=== PATIENT | male | born 1960 | race Caucasian/White ===

== ENCOUNTER 2016-11-20 19:40 | Emergency (ER) | payer SELFPAY ==
[2016-11-20] MEDS ORDERED: NORMAL SALINE 1000 ML 2,000 ML IV PRN (20:02)
--- NOTE | 2016-11-20 20:18 | ER Document Report ---
ED General - General Chief Complaint: Low Blood Pressure Stated Complaint: ALTERED MENTAL STATUS Time seen by provider: 20:16 Mode of Arrival: Stretcher Information source: Patient TRAVEL OUTSIDE OF THE [place] IN LAST 30 DAYS: No - HPI Patient complains to provider of: fever, generalized weakness Onset: Other - 3-4 days Onset/Duration: Persistent Quality of pain: Achy Severity: Mild Pain Level: 2 Associated symptoms: Body/muscle aches, Chills, Nonproductive cough, Fever, Headache, Nausea, Weakness Exacerbated by: Denies Relieved by: Denies Similar symptoms previously: No Recently seen / treated by doctor: No Notes: Patient is a 56-year-old male with no past medical history who presents to the emergency room via EMS for fever 102, body aches, nonproductive cough, vomiting , epigastric abdominal pain, headache, symptoms of been going on for 3-4 days, he denies any sick contacts - Related Data Allergies/Adverse Reactions: No Known Allergies Allergy (Verified 02/05/16 15:11) Past Medical History - General Information source: Patient - Social History Smoking Status: Unknown if Ever Smoked Family History: Arthritis, DM, Hypertension, Malignancy Musculoskeltal Medical History: Reports Hx Musculoskeletal Trauma - Finger Traumatic Medical History: Reports: Hx Fractures - Finger - Immunizations Hx Diphtheria, Pertussis, Tetanus Vaccination: Yes - 2016 Review of Systems - Review of Systems Constitutional: Fever EENT: See HPI Cardiovascular: No symptoms reported Respiratory: See HPI Gastrointestinal: See HPI Genitourinary: No symptoms reported Male Genitourinary: No symptoms reported Musculoskeletal: See HPI Skin: No symptoms reported Hematologic/Lymphatic: No symptoms reported Neurological/Psychological: See HPI -: Yes All other systems reviewed and negative Physical Exam - Vital signs Vitals: Resp Pulse Ox 10 L 100 11/20/16 19:54 11/20/16 19:54 Interpretation: Normal - General General appearance: Alert In distress: None - HEENT Head: Normocephalic, Atraumatic Eyes: Normal Conjunctiva: Normal Extraocular movements intact: Yes Eyelashes: Normal Pupils: PERRL Ears: Normal External canal: Normal Tympanic membrane: Normal Sinus: Normal Nasal: Clear rhinorrhea Mouth/Lips: Normal Pharynx: Normal Neck: Normal. No: Meningismus - Respiratory Respiratory status: No respiratory distress Chest status: Nontender Breath sounds: Normal Chest palpation: Normal - Cardiovascular Rhythm: Regular Heart sounds: Normal auscultation Murmur: No - Abdominal Inspection: Normal Distension: No distension Bowel sounds: Normal Tenderness: Tender - Epigastric Organomegaly: No organomegaly - Back Back: Normal, Nontender - Extremities General upper extremity: Normal inspection, Nontender, Normal color, Normal ROM , Normal temperature General lower extremity: Normal inspection, Nontender, Normal color, Normal ROM , Normal temperature, Normal weight bearing. No: Birgit's sign - Neurological Neuro grossly intact: Yes Cognition: Normal Orientation: AAOx4 Wolcott Coma Scale Eye Opening: Spontaneous Wolcott Coma Scale Verbal: Oriented Wolcott Coma Scale Motor: Obeys Commands Wolcott Coma Scale Total: 15 Speech: Normal Motor strength normal: LUE, RUE, LLE, RLE Sensory: Normal - Psychological Associated symptoms: Normal affect, Normal mood - Skin Skin Temperature: Warm Skin Moisture: Dry Skin Color: Normal Course - Re-evaluation Re-evalutation: 11/20/16 23:15 Patient resting comfortably, reports feeling significant relief of symptoms, lab findings were discussed with him at bedside including positive influenza B testing, patient was advised for supportive care, Tylenol or Motrin as needed for fever or body aches, follow up with a primary care provider, return if symptoms worsen, patient acknowledges understanding and agreement with this plan - Vital Signs Vital signs: Temp Pulse Resp BP Pulse Ox 98.5 F 16 136/89 H 97 11/20/16 23:54 11/20/16 23:49 11/20/16 23:49 11/20/16 23:49 - Laboratory Result Diagrams: 11/20/16 20:30 11/20/16 20:30 Laboratory results interpreted by me: 11/20/16 11/20/16 20:30 20:30 Plt Count 125 L Calcium 8.1 L AST 16 L ALT 20 L Creatine Kinase 38 L Total Protein 5.9 L Albumin 3.2 L - Diagnostic Test Radiology reviewed: Image reviewed, Reports reviewed Discharge - Discharge Clinical Impression: Influenza B Condition: Stable Disposition: HOME, SELF-CARE Instructions: Acetaminophen, Influenza ([facility]) [id number], Ibuprofen (General) ( [facility]), Influenza ([facility]) Additional Instructions: Drink plenty of fluids. Tylenol or Motrin as needed for fever or body aches. Follow up with your primary care provider in 2-3 days as needed. Return to the emergency room immediately if symptoms worsen or any additional concerns.
[2016-11-20 20:48] LABS: ABSOLUTE LYMPHOCYTES (AUTO) 0.6 10^3/uL (0.5-4.7); ABSOLUTE MONOCYTES (AUTO) 0.6 10^3/uL (0.1-1.4); ABSOLUTE NEUT (AUTO) 3.6 10^3/uL (1.7-8.2); BASOPHILS % (AUTO) 0.4 % (0-2); EOSINOPHILS % (AUTO) 0.4 % (0-6); HEMATOCRIT 42.6 % (37.9-51.0); HEMOGLOBIN 14.6 g/dL (13.5-17.0); HGB HCT DIFFERENCE 1.2; LYMPHOCYTES % (AUTO) 13.3 % (13-45); MEAN CORPUSCULAR HEMOGLOBIN 30.7 pg (27.0-33.4); MEAN CORPUSCULAR HGB CONC 34.4 g/dL (32.0-36.0); MEAN CORPUSCULAR VOLUME 89 fl (80-97); RED BLOOD COUNT 4.77 10^6/uL (4.35-5.55); RED CELL DISTRIBUTION WIDTH 12.6 % (11.5-14.0); SEGMENTED NEUTROPHILS % (AUTO) 73.9 % (42-78); WHITE BLOOD COUNT 4.9 10^3/uL (4.0-10.5)
[2016-11-20 21:08] LABS: ALANINE AMINOTRANSFERASE 20 U/L (21-72); ALBUMIN 3.2 g/dL (3.5-5.0); ALCOHOL < 10 mg/dL (NONE DETECTED); ALKALINE PHOSPHATASE 72 U/L (38-126); ANION GAP 10 (5-19); ASPARTATE AMINO TRANSFERASE 16 U/L (17-59); BILIRUBIN,TOTAL 0.5 mg/dL (0.2-1.3); BLOOD UREA NITROGEN 17 mg/dL (7-20); CALCIUM 8.1 mg/dL (8.4-10.2); CARBON DIOXIDE 25 mmol/L (22-30); CHLORIDE 105 mmol/L (98-107); CREATINE KINASE 38 U/L (55-170); CREATININE RESULT 1.15 mg/dL (0.52-1.25); GLUCOSE 92 mg/dL (75-110); LIPASE 67.4 U/L (23-300); POTASSIUM 3.6 mmol/L (3.6-5.0); SODIUM 139.9 mmol/L (137-145); TOTAL PROTEIN 5.9 g/dL (6.3-8.2)
[2016-11-20 21:19] LABS: CREATINE KINASE MB < 0.22 ng/mL (<4.55); TROPONIN I < 0.012 ng/mL
[2016-11-20 23:54] VITALS: BP 136/89
--- NOTE | 2016-11-21 12:31 | EKG REPORT ---
SEVERITY:- ABNORMAL ECG - SINUS RHYTHM INCOMPLETE RIGHT BUNDLE BRANCH BLOCK : Confirmed by: Janice Bhatia 21-Nov-2016 12:30:56
== END 2016-11-20 23:50 | disposition home or self-care (01) ==
LOC: ER 19:40
DX: J11.1 Influenza due to unidentified influenza virus with other respiratory manifestations (principal); R50.9 Fever, unspecified; R53.1 Weakness; M79.1 Myalgia; R05 Cough; R51 Headache; R11.2 Nausea with vomiting, unspecified; R10.13 Epigastric pain; J34.89 Other specified disorders of nose and nasal sinuses
CPT/HCPCS: 93005; 99285; 96360; 36415; 87040; 82553; 80307; 82550; 83690; 85025; 80053; 84484; 83605; 87804; 71020; 93010; J7030

== ENCOUNTER 2017-06-20 15:51 | Inpatient (IN) | payer SELFPAY ==
[2017-06-20] MEDS ORDERED: LEVETIRACETAM 1000 MG/NACL-ISO 1,000 MG/100 ML RTUPB IV ONE (16:08)
--- NOTE | 2017-06-20 16:25 | ER Document Report ---
ED Seizure - General Mode of Arrival: Medic Information source: Patient, Emergency Med Personnel - [facility] Patient complains to provider of: History of seizures <ILA MILLER - Last Filed: 06/20/17 20:39> <AMBROSE OATES - Last Filed: 06/21/17 00:09> - General Chief Complaint: Seizure Stated Complaint: PROBABLE SEIZURE Notes: Patient is a 57 year old male who presents to the ED via EMS after having a seizure while at work. 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 Patient is reported to have an episode of nausea and vomiting prior to the seizure. Patient had 3 witnessed seizures by EMS. He was given Valium and Zofran en route. Patient states he had a headache yesterday. He has a hx of seizures but has not taken any medication for 2 years. (ILA MILLER) After sister arrives and the patient is more awake both patient and sister deny that he ever had any history of seizures or epilepsy, he now denies nausea and vomiting yesterday, states that for the past several days he has been feeling intermittent tightness in his chest and flushing, states that he has been taking Benadryl 6-7 pills nightly to help him sleep. States that he feels like something is wrong but he does not know what. Denies any chest pain. Denies any history of seizures. Admits marijuana, denies any other recreational drug use currently. When questioned regarding the cocaine in his urine drug screen states that the last time he used was several years ago. (AMBROSE OATES) - Related Data Allergies/Adverse Reactions: No Known Allergies Allergy (Verified 06/20/17 16:12) Past Medical History - General Information source: Patient - Social History Smoking Status: Unknown if Ever Smoked Chew tobacco use (# tins/day): No Frequency of alcohol use: None Drug Abuse: Marijuana Family History: Arthritis, DM, Hypertension, Malignancy Patient has suicidal ideation: No Patient has homicidal ideation: No Neurological Medical History: Reports: Hx Seizures Renal/ Medical History: Denies: Hx Peritoneal Dialysis Musculoskeltal Medical History: Reports Hx Musculoskeletal Trauma - Finger Traumatic Medical History: Reports: Hx Fractures - Finger Surgical Hx: Negative - Immunizations Hx Diphtheria, Pertussis, Tetanus Vaccination: Yes - 2015 <ILA MILLER - Last Filed: 06/20/17 20:39> Review of Systems - Review of Systems Constitutional: No symptoms reported EENT: No symptoms reported Cardiovascular: No symptoms reported Respiratory: No symptoms reported Gastrointestinal: See HPI, Nausea, Vomiting Genitourinary: No symptoms reported Male Genitourinary: No symptoms reported Musculoskeletal: No symptoms reported Skin: No symptoms reported Hematologic/Lymphatic: No symptoms reported Neurological/Psychological: See HPI, Seizure, Headaches <ILA MILLER - Last Filed: 06/20/17 20:39> Physical Exam <ILA MILLER - Last Filed: 06/20/17 20:39> <STEVIEYANCYAMBROSE - Last Filed: 06/21/17 00:09> - Vital signs Vitals: Resp Pulse Ox 18 95 06/20/17 16:03 06/20/17 16:03 - Notes Notes: GENERAL: Alert, interacts well. No acute distress. No trauma visible. HEAD: Normocephalic, atraumatic. EYES: Pupils equal, round, and reactive to light. Extraocular movements intact. ENT: Oral mucosa moist, tongue midline. NECK: Full range of motion. Supple. Trachea midline. LUNGS: Clear to auscultation bilaterally, no wheezes, rales, or rhonchi. No respiratory distress. HEART: Regular rate and rhythm. No murmurs, gallops, or rubs. ABDOMEN: Soft, non-tender. Non-distended. Bowel sounds present in all 4 quadrants. EXTREMITIES: Moves all 4 extremities spontaneously. No edema, radial and dorsalis pedis pulses 2/4 bilaterally. No cyanosis. NEUROLOGICAL: Alert and oriented to person and place, he thinks it is 2002 but with prompting could tell me Luis is the president. Normal speech. normal finger to nose test. No ataxia. Some repetitive questions. Biceps and patellar DTRs 2+ bilaterally. PSYCH: Normal affect, normal mood. SKIN: Warm, dry, normal turgor. No rashes or lesions noted. (ILA MILLER) Course - Laboratory Result Diagrams: 06/20/17 15:57 06/20/17 15:57 - Consults Dr. Morrison Time consulted: 20:25 Consulted provider: will see as inpatient <ILA MILLER - Last Filed: 06/20/17 20:39> - Laboratory Result Diagrams: 06/20/17 15:57 06/20/17 15:57 <AMBROSE OATES - Last Filed: 06/21/17 00:09> - Re-evaluation Re-evalutation: 06/20/17 20:45 CBC unremarkable, CMP shows acute renal failure with a BUN of 28 and a creatinine of 1.56 consistent with dehydration, CO2 is also low consistent with dehydration and ketones in the urine also support dehydration, patient hydrated with a liter of normal saline, given 1 g of Keppra IV, patient did have several apneic episodes that lasted 5-10 seconds, he was never cyanotic nor was he hypoxic, patient was easily awakened with verbal or physical stimulation, painful stimuli was not required. Suspect this is the side effect of a combination of seizures, Keppra and Valium all at the same time. Patient has no focal neurologic deficits. CT scan of the head is negative for any bleeding. Neurologic exam is nonfocal. Given the new onset nature of the seizures and the fact that he had 3 in one day so this is complex rather than simple seizures first episode I do feel the patient needs to be admitted for further seizure workup including MRI and EEG. Discussed with hospitalist Dr. Morrison who agrees to place the patient on his service in observation status on the telemetry care unit. (AMBROSE OATES) - Vital Signs Vital signs: Temp Pulse Resp BP Pulse Ox 98.3 F 13 127/86 H 99 06/20/17 23:04 06/20/17 22:02 06/20/17 22:02 06/20/17 18:03 - Laboratory Laboratory results interpreted by me: 06/20/17 06/20/17 15:57 17:45 Carbon Dioxide 21 L BUN 28 H Creatinine 1.56 H Est GFR ( Amer) 56 L Est GFR (Non-Af Amer) 46 L Direct Bilirubin 0.5 H ALT 20 L Urine Protein 30 H Urine Ketones 20 H - Consults Dr. Morrison Reason for consultation: 06/20/17 20:35 Discussed patient. Patient is accepted for admission to telemetry observation. (ILA MILLER) Discharge <ILA MILLER - Last Filed: 06/20/17 20:39> - Discharge Admitting Provider: Abdirahmanist - fausto Unit Admitted: Telemetry <AMBROSE OATES - Last Filed: 06/21/17 00:09> - Discharge Clinical Impression: New onset seizure, Marijuana abuse Condition: Fair Disposition: ADMITTED OBSERVATION Scribe Attestation: 06/21/17 00:08 I personally performed the services described in the documentation, reviewed and edited the documentation which was dictated to the scribe in my presence, and it accurately records my words and actions. (AMBROSE OATES) Scribe Documentation - Scribe Written by Xiang:: xiang Pillai, 06/20/2017, 1736 acting as scribe for :: Emmett <ILA MILLER - Last Filed: 06/20/17 20:39>
--- NOTE | 2017-06-20 16:51 | RADIOLOGY REPORT (SQ) ---
EXAM DESCRIPTION: CT HEAD WITHOUT COMPLETED DATE/TIME: 06/20/2017 4:42 pm REASON FOR STUDY: seizure COMPARISON: 05/22/2008 TECHNIQUE: Axial images acquired through the brain without intravenous contrast. Images reviewed wi th bone, brain and subdural windows. Images stored on PACS. All CT scanners at this facility use dose modulation, iterative reconstruction, and/or weight based d osing when appropriate to reduce radiation dose to as low as reasonably achievable (ALARA). [facility]: Dose Right [facility]: CareDose [facility]: Dose Right [facility]: Teradose 4D [facility]: Smart Technologies RADIATION DOSE: Up-to-date CT equipment and radiation dose reduction techniques were employed. CTDIv ol: 64.6 mGy. DLP: 1163 mGy-cm. mGy. LIMITATIONS: None. FINDINGS: VENTRICLES: Normal size and contour. CEREBRUM: No masses. No hemorrhage. No midline shift. No evidence for acute infarction. Normal gra y/white matter differentiation. No areas of low density in the white matter. CEREBELLUM: No masses. No hemorrhage. No alteration of density. No evidence for acute infarction. EXTRAAXIAL SPACES: No fluid collections. No masses. ORBITS AND GLOBE: No intra- or extraconal masses. Normal contour of globe without masses. CALVARIUM: No fracture. PARANASAL SINUSES: No fluid or mucosal thickening. SOFT TISSUES: No mass or hematoma. OTHER: No other significant finding. IMPRESSION: NORMAL BRAIN CT WITHOUT CONTRAST. COMMENT: Quality ID # [id number]: Final reports with documentation of one or more dose reduction techniques (e.g., Automated exposure control, adjustment of the mA and/or kV according to patient size, use of iterative reconstruction technique) TECHNICAL DOCUMENTATION: JOB ID: [id number]- All Rights Reserved
[2017-06-20 16:59] LABS: ABSOLUTE LYMPHOCYTES (AUTO) 1.3 10^3/uL (0.5-4.7); ABSOLUTE MONOCYTES (AUTO) 0.7 10^3/uL (0.1-1.4); ABSOLUTE NEUT (AUTO) 5.8 10^3/uL (1.7-8.2); BASOPHILS % (AUTO) 0.4 % (0-2); EOSINOPHILS % (AUTO) 0.6 % (0-6); HEMATOCRIT 44.8 % (37.9-51.0); HEMOGLOBIN 15.7 g/dL (13.5-17.0); HGB HCT DIFFERENCE 2.3; MEAN CORPUSCULAR HEMOGLOBIN 32.2 pg (27.0-33.4); MEAN CORPUSCULAR VOLUME 92 fl (80-97); MONOCYTES % (AUTO) 9.3 % (3-13); RED BLOOD COUNT 4.87 10^6/uL (4.35-5.55); RED CELL DISTRIBUTION WIDTH 13.4 % (11.5-14.0); SEGMENTED NEUTROPHILS % (AUTO) 73.7 % (42-78); WHITE BLOOD COUNT 7.9 10^3/uL (4.0-10.5)
[2017-06-20 17:01] LABS: PROTHROMBIN TIME 13.3 SEC (11.4-15.4)
[2017-06-20 17:09] LABS: ALANINE AMINOTRANSFERASE 20 U/L (21-72); ALBUMIN 4.6 g/dL (3.5-5.0); ALKALINE PHOSPHATASE 92 U/L (38-126); ANION GAP 15 (5-19); ASPARTATE AMINO TRANSFERASE 27 U/L (17-59); BILIRUBIN,DIRECT 0.5 mg/dL (0.0-0.4); BILIRUBIN,TOTAL 1.3 mg/dL (0.2-1.3); BLOOD UREA NITROGEN 28 mg/dL (7-20); CALCIUM 10.1 mg/dL (8.4-10.2); CARBON DIOXIDE 21 mmol/L (22-30); CHLORIDE 105 mmol/L (98-107); CREATININE RESULT 1.56 mg/dL (0.52-1.25); GLUCOSE 110 mg/dL (75-110); MAGNESIUM 1.7 mg/dL (1.6-2.3); POTASSIUM 3.6 mmol/L (3.6-5.0); SODIUM 141.1 mmol/L (137-145); TOTAL PROTEIN 7.5 g/dL (6.3-8.2)
[2017-06-20 17:13] LABS: ALCOHOL < 10 mg/dL (NONE DETECTED)
[2017-06-20] MEDS ORDERED: NORMAL SALINE 1000 ML 1,000 ML IV ONE ×2 (17:40→20:46)
[2017-06-20 18:04] LABS: APPEARANCE,URINE SLIGHTLY-CLOUDY; BILIRUBIN,URINE NEGATIVE (NEGATIVE); GLUCOSE, URINE NEGATIVE (NEGATIVE); KETONES,URINE 20 mg/dL (NEGATIVE); LEUKOCYTE ESTERASE,URINE NEGATIVE (NEGATIVE); NITRITE,URINE NEGATIVE (NEGATIVE); PROTEIN,URINE 30 mg/dL (NEGATIVE); URINE SPECIFIC GRAVITY 1.028; UROBILINOGEN,URINE NEGATIVE mg/dL (<2.0)
[2017-06-20 19:31] LABS: URINE BARBITURATES SCREEN NEGATIVE; URINE METHADONE SCREEN NEGATIVE; URINE OPIATES LOW NEGATIVE; URINE PHENCYCLIDINE SCREEN NEGATIVE
[2017-06-20] MEDS ORDERED: ONDANSETRON HCL INJ/PF 4 MG/2 ML SDV IV PRN (20:43)
[2017-06-20] MEDS ORDERED: IPRATROPIUM/ALBUTEROL 0.5-2.5 MG/3 ML AMPUL NEB PRN (20:43)
--- NOTE | 2017-06-20 22:01 | EKG REPORT ---
SEVERITY:- ABNORMAL ECG - SINUS RHYTHM INCOMPLETE RIGHT BUNDLE BRANCH BLOCK : Confirmed by: Janice Bhatia 20-Jun-2017 22:00:44
[2017-06-21] MEDS: HEPARIN SOD (PORCINE) 5,000 UNIT/ML 1 ML SYRINGE SUBCUT SCH ×4 (00:18→21:00)
[2017-06-21] MEDS: ACETAMINOPHEN 325 MG TABLET PO PRN ×3 (03:29→23:42)
[2017-06-21] MEDS ORDERED: ACETAMINOPHEN 325 MG TABLET ONE (03:29)
[2017-06-21] MEDS: TEMAZEPAM 7.5 MG CAPSULE PO SCH (03:30)
[2017-06-21 04:50] LABS: ABSOLUTE EOSINOPHILS # (AUTO) 0.1 10^3/uL (0.0-0.6); ABSOLUTE MONOCYTES (AUTO) 0.7 10^3/uL (0.1-1.4); BASOPHILS % (AUTO) 0.7 % (0-2); EOSINOPHILS % (AUTO) 2.3 % (0-6); HEMATOCRIT 41.2 % (37.9-51.0); HEMOGLOBIN 14.4 g/dL (13.5-17.0); LYMPHOCYTES % (AUTO) 34.5 % (13-45); MEAN CORPUSCULAR VOLUME 91 fl (80-97); MONOCYTES % (AUTO) 11.9 % (3-13); RED BLOOD COUNT 4.51 10^6/uL (4.35-5.55); RED CELL DISTRIBUTION WIDTH 13.1 % (11.5-14.0); SEGMENTED NEUTROPHILS % (AUTO) 50.6 % (42-78); WHITE BLOOD COUNT 5.9 10^3/uL (4.0-10.5)
[2017-06-21 05:09] LABS: ANION GAP 9 (5-19); BLOOD UREA NITROGEN 23 mg/dL (7-20); CALCIUM 9.4 mg/dL (8.4-10.2); CARBON DIOXIDE 25 mmol/L (22-30); CHLORIDE 108 mmol/L (98-107); CREATININE RESULT 1.13 mg/dL (0.52-1.25); GLUCOSE 91 mg/dL (75-110); POTASSIUM 4.1 mmol/L (3.6-5.0); SODIUM 141.7 mmol/L (137-145)
--- NOTE | 2017-06-21 05:50 | PDOC H&P ---
History of Present Illness Admission Date/PCP: 06/20/17 20:43 Patient complains of: Seizure History of Present Illness: DARI GRIFFITHS JR is a 57 year old male With a past medical history of alcohol dependence and polysubstance abuse who was in his usual state of health until approximately 30 minutes prior to presentation. Having vomiting and witnessed seizures while at work EMS administered 5 mg Valium and he was brought to the emergency room for evaluation. He had 3 additional seizures without injury or incontinence and was given 1 g of Keppra and has a brief postictal period. Patient's workup and labs are unremarkable with exception to drug screen positive for cocaine, marijuana and benzodiazepine. Patient accompanied by his sister and adamantly denies recent cocaine but notably giving at least 3 different dates of last cocaine use. He is referred to the hospitalist for observation. Past Medical History Cardiac Medical History: Reports: None Pulmonary Medical History: Reports: None EENT Medical History: Reports: None Neurological Medical History: Reports: Seizures Endocrine Medical History: Reports: None Renal/ Medical History: Reports: None Malignancy Medical History: Reports: None GI Medical History: Reports: None Musculoskeltal Medical History: Reports: None Skin Medical History: Reports: None Psychiatric Medical History: Reports: Alcohol Dependency, Substance Abuse Denies: Depression Hematology: Reports: None Infectious Medical History: Reports: None Social History Information Source: Patient Lives with: Family Smoking Status: Never Smoker Frequency of Alcohol Use: Occasional Hx Recreational Drug Use: Yes Drugs: Cocaine, Marijuana - Advance Directive Resuscitation Status: Full Code Family History Family History: Arthritis, DM, Hypertension, Malignancy Parental Family History Reviewed: Yes Children Family History Reviewed: Yes Sibling(s) Family History Reviewed.: Yes Medication/Allergy Allergies/Adverse Reactions: No Known Allergies Allergy (Verified 06/20/17 16:12) Review of Systems Constitutional: ABSENT: chills, fever(s), headache(s), weight gain, weight loss Eyes: ABSENT: visual disturbances Ears: ABSENT: hearing changes Cardiovascular: ABSENT: chest pain, dyspnea on exertion, edema, orthropnea, palpitations Respiratory: ABSENT: cough, hemoptysis Gastrointestinal: ABSENT: abdominal pain, constipation, diarrhea, hematemesis, hematochezia, nausea, vomiting Genitourinary: ABSENT: dysuria, hematuria Musculoskeletal: ABSENT: joint swelling Integumentary: ABSENT: rash, wounds Neurological: ABSENT: abnormal gait, abnormal speech, confusion, dizziness, focal weakness, syncope Psychiatric: ABSENT: anxiety, depression, homidical ideation, suicidal ideation Endocrine: ABSENT: cold intolerance, heat intolerance, polydipsia, polyuria Hematologic/Lymphatic: ABSENT: easy bleeding, easy bruising Physical Exam Vital Signs: Temp Pulse Resp BP Pulse Ox 97.7 F 54 L 18 120/77 97 06/21/17 03:14 06/21/17 03:14 06/21/17 03:14 06/21/17 03:14 06/21/17 03:14 Intake & Output 06/19/17 06/20/17 06/21/17 11:59 11:59 11:59 Intake Total 0 Balance 0 Weight 88.1 kg General appearance: PRESENT: no acute distress, well-developed, well-nourished Head exam: PRESENT: atraumatic, normocephalic Eye exam: PRESENT: conjunctiva pink, EOMI, PERRLA. ABSENT: scleral icterus Ear exam: PRESENT: normal external ear exam Mouth exam: PRESENT: moist, tongue midline Neck exam: ABSENT: carotid bruit, JVD, lymphadenopathy, thyromegaly Respiratory exam: PRESENT: clear to auscultation gabriella. ABSENT: rales, rhonchi, wheezes Cardiovascular exam: PRESENT: RRR. ABSENT: diastolic murmur, rubs, systolic murmur Pulses: PRESENT: normal dorsalis pedis pul Vascular exam: PRESENT: normal capillary refill GI/Abdominal exam: PRESENT: normal bowel sounds, soft. ABSENT: distended, guarding, mass, organolmegaly, rebound, tenderness Rectal exam: PRESENT: deferred Extremities exam: PRESENT: full ROM. ABSENT: calf tenderness, clubbing, pedal edema Neurological exam: PRESENT: alert, awake, oriented to person, oriented to place , oriented to time, oriented to situation, CN II-XII grossly intact. ABSENT: motor sensory deficit Psychiatric exam: PRESENT: appropriate affect, normal mood. ABSENT: homicidal ideation, suicidal ideation Skin exam: PRESENT: dry, intact, warm. ABSENT: cyanosis, rash Results Laboratory Results: 06/21/17 04:28 06/21/17 04:28 06/21/17 06/21/17 04:28 04:28 WBC 5.9 RBC 4.51 Hgb 14.4 Hct 41.2 MCV 91 MCH 32.0 MCHC 35.0 RDW 13.1 Plt Count 178 Seg Neutrophils % 50.6 Lymphocytes % 34.5 Monocytes % 11.9 Eosinophils % 2.3 Basophils % 0.7 Absolute Neutrophils 3.0 Absolute Lymphocytes 2.0 Absolute Monocytes 0.7 Absolute Eosinophils 0.1 Absolute Basophils 0.0 Sodium 141.7 Potassium 4.1 Chloride 108 H Carbon Dioxide 25 Anion Gap 9 BUN 23 H Creatinine 1.13 Est GFR ( Amer) > 60 Est GFR (Non-Af Amer) > 60 Glucose 91 Calcium 9.4 Impressions: Head CT 06/20/17 00:00 IMPRESSION: NORMAL BRAIN CT WITHOUT CONTRAST. Assessment & Plan - Diagnosis (1) New onset seizure Is this a current diagnosis for this admission?: Yes Plan: Likely secondary to cocaine use given history and biochemical evidence. Education, continue Keppra and supportive measures. (2) Polysubstance abuse Is this a current diagnosis for this admission?: Yes Plan: Anticipate withdrawal, education and evaluate for rehab referral - Time Time Spent: 50 to 70 Minutes - Inpatient Certification Medical Necessity: Need Close Monitoring Due to Risk of Patient Decompensation
--- NOTE | 2017-06-21 09:58 | PROGRESS NOTE E ---
Progress Note NAME: DARI GRIFFITHS : 1960 AGE: 57Y DATE: 06/21/2017 ROOM: 319 SUBJECTIVE: The patient is a 57-year-old male, who has past medical history of cocaine abuse in the past, alcohol dependence and polysubstance abuse. He was in his usual state of health until last night, when he was having vomiting and seizure, and was brought to the emergency room. He had a urine drug screen that was remarkable for positive to cocaine, marijuana and benzodiazepine. The patient received 1 gram of Keppra IV in the ER and temazepam. He denied using cocaine. According to him, he used cocaine last time 2 years ago. The patient said he is working and he has difficulty sleeping. He uses Benadryl every day around 6 tablets to help sleep. OBJECTIVE: GENERAL: Right now, he is awake, alert, oriented and not in distress. VITAL SIGNS: Temperature 98.3, heart rate 53, blood pressure 94/59, respirations 18, oxygen saturation 99%. HEAD: Normocephalic, atraumatic. Pupils are equal, round, reactive to light and accommodation bilaterally. Extraocular movements intact. EARS: Tympanic membranes intact bilaterally. No discharge from the ears. NOSE: No discharge from the nose. NECK: Supple. No JVD. No thyromegaly. No lymphadenopathy. CARDIOVASCULAR: Normal S1, S2. Regular rate and rhythm. No murmur. No gallop. RESPIRATORY: Clear. ABDOMEN: Soft, nontender. MUSCULOSKELETAL: No edema. NEUROLOGICAL: Awake, alert. SKIN: No rash. LABORATORY DATA: White count 5.9, hemoglobin 14.4, sodium 141, potassium 4.1, chloride 108. Urine drug screen is positive for benzodiazepine, cocaine, marijuana. ASSESSMENT: 1. SEIZURE, NEW ONSET. Negative CT scan, positive drug screen. 2. POLYSUBSTANCE ABUSE. The patient denied using cocaine. He stated the last time he used cocaine was 2 years ago. 3. ALCOHOL USE. He also denies alcohol use. PLAN: 1. His seizures could be due to high dose of Benadryl. Possible also alcohol withdrawal, but he does not have any confusion or shaking or tremor. He had a negative CT scan. We will order MRI of the brain and EEG. We will consult Neurology as outpatient or on Thursday. I will start him on Keppra 500 mg twice a day and refer him to Neurology to follow as outpatient after we obtained MRI and EEG. 2. Discharge tomorrow morning. DICTATING PHYSICIAN: JENNIFER GONZALES M.D. [id number] PHY#: [id number] ID: [id number] JOB#: [id number] ACCT: [id number] cc: > MTDD
[2017-06-21] MEDS: IBUPROFEN 400 MG TABLET PO PRN (10:15)
[2017-06-21] MEDS: LEVETIRACETAM 500 MG TABLET PO SCH ×2 (10:16→21:00)
--- NOTE | 2017-06-21 12:01 | RADIOLOGY REPORT (SQ) ---
EXAM DESCRIPTION: MRI HEAD COMBO COMPLETED DATE/TIME: 06/21/2017 11:31 am REASON FOR STUDY: Seizure COMPARISON: CT dated 06/20/2017. TECHNIQUE: Multiplanar imaging includes noncontrasted T1, T2, FLAIR, diffusion with ADC map and post gadolinium contrast T1 sequences. Images stored on PACS. CONTRAST TYPE AND DOSE: 15 mL Multihance. RENAL FUNCTION: GFR > 60. LIMITATIONS: None. FINDINGS: ANATOMY: No anomalies. Normal vascular flow voids. Pituitary fossa normal. CSF SPACES: Normal in size and contour. No hemorrhage. CEREBRUM: Sulci and gyri normal in size and contour. Normal white matter signal on FLAIR imaging. No evidence of hemorrhage, mass, or extraaxial fluid collection. No abnormal enhancement post contrast. POSTERIOR FOSSA: No signal alteration. No hemorrhage. No edema, masses, or mass effect. Internal jared tory canals, cerebellopontine angles, mastoids normal. No enhancing lesions. No abnormal enhancement post contrast. DIFFUSION IMAGING: Negative for acute or subacute infarction. ORBITS: No masses. Globes normal. PARANASAL SINUSES: No fluid levels. Mucosa normal. OTHER: No other significant finding. IMPRESSION: NORMAL MRI OF THE BRAIN WITHOUT AND WITH INTRAVENOUS GADOLINIUM CONTRAST. EVIDENCE OF ACUTE STROKE: NO. TECHNICAL DOCUMENTATION: JOB ID: [id number] [employer]- All Rights Reserved
[2017-06-22] MEDS: TEMAZEPAM 7.5 MG CAPSULE PO SCH ×2 (00:30→22:02)
[2017-06-22] MEDS: HEPARIN SOD (PORCINE) 5,000 UNIT/ML 1 ML SYRINGE SUBCUT SCH ×3 (05:10→22:03)
[2017-06-22] MEDS: IBUPROFEN 400 MG TABLET PO PRN (05:12)
[2017-06-22] MEDS: LEVETIRACETAM 500 MG TABLET PO SCH ×2 (09:46→22:03)
--- NOTE | 2017-06-22 10:48 | Physician Advisory Note ---
Physician Advisor ProgressNote .: Pursuant to the plan for [facility], I have reviewed the medical record for this patient. Physician Advisor Statement: Please consider documentin. "ARF, now resolved, likely due to , w/associated Acute Metabolic Acidosis" Status Obs appropriate. Thanks! CK
[2017-06-22] MEDS ORDERED: NORMAL SALINE 1000 ML 1,000 ML IV ONE (13:30)
--- NOTE | 2017-06-22 16:47 | PDOC PROGRESS REPORT ---
Subjective Progress Note for:: 06/22/17 Subjective:: Pt seen earlier this morning. Pt states that he has not used cocaine for a while. Nursing states that pt is very dizzy with ambulating. Physical Exam Vital Signs: Temp Pulse Resp BP Pulse Ox 98.6 F 58 L 18 116/73 99 06/22/17 15:45 06/22/17 15:45 06/22/17 15:45 06/22/17 15:45 06/22/17 15:45 Intake & Output 06/21/17 06/22/17 06/23/17 06:59 06:59 06:59 Intake Total 1000 1257 Output Total 800 Balance 1000 457 Weight 88.1 kg 91.1 kg General appearance: PRESENT: no acute distress, well-developed, well-nourished Head exam: PRESENT: atraumatic Eye exam: PRESENT: conjunctiva pink, EOMI. ABSENT: scleral icterus Ear exam: PRESENT: normal external ear exam Mouth exam: PRESENT: moist, tongue midline Neck exam: ABSENT: carotid bruit, JVD, lymphadenopathy, thyromegaly Respiratory exam: PRESENT: clear to auscultation gabriella. ABSENT: rales, rhonchi, wheezes Cardiovascular exam: PRESENT: RRR. ABSENT: diastolic murmur, rubs, systolic murmur Pulses: PRESENT: normal dorsalis pedis pul Vascular exam: PRESENT: normal capillary refill GI/Abdominal exam: PRESENT: normal bowel sounds, soft. ABSENT: distended, guarding, mass, organolmegaly, rebound, tenderness Rectal exam: PRESENT: deferred Extremities exam: PRESENT: full ROM. ABSENT: calf tenderness, clubbing, pedal edema Neurological exam: PRESENT: alert, awake, oriented to person, oriented to place , oriented to time, oriented to situation, CN II-XII grossly intact. ABSENT: motor sensory deficit Psychiatric exam: PRESENT: appropriate affect, normal mood. ABSENT: homicidal ideation, suicidal ideation Skin exam: PRESENT: dry, intact, warm. ABSENT: cyanosis, rash Results Laboratory Results: 06/21/17 04:28 06/21/17 04:28 Impressions: Head CT 06/20/17 00:00 IMPRESSION: NORMAL BRAIN CT WITHOUT CONTRAST. Head MRI 06/21/17 00:00 IMPRESSION: NORMAL MRI OF THE BRAIN WITHOUT AND WITH INTRAVENOUS GADOLINIUM CONTRAST. EVIDENCE OF ACUTE STROKE: NO. Assessment & Plan - Diagnosis (1) Benign positional vertigo Qualifiers: Laterality: unspecified laterality Qualified Code(s): H81.10 - Benign paroxysmal vertigo, unspecified ear Is this a current diagnosis for this admission?: Yes Plan: Will place on Meclizine. Will monitor pt overnight. Will have pt work with PT/ OT. (2) New onset seizure Is this a current diagnosis for this admission?: Yes Plan: Secondary to Polysubstance Abuse Cocaine, : Pt on Keppra. No seizure activity. (3) Cocaine abuse Is this a current diagnosis for this admission?: Yes Plan: Pt continues to deny cocaine use. (4) Marijuana abuse Is this a current diagnosis for this admission?: Yes Plan: Encourage pt to stop using Marijuana. (5) Polysubstance abuse Is this a current diagnosis for this admission?: Yes Plan: Encouraged pt not to use drugs. (6) DVT prophylaxis Is this a current diagnosis for this admission?: Yes Plan: Heparin - Time Time Spent with patient: 15-24 minutes Anticipated discharge: Home
[2017-06-22] MEDS ORDERED: MECLIZINE HCL 25 MG TABLET PO ONE (17:00)
[2017-06-22] MEDS: ACETAMINOPHEN 325 MG TABLET PO PRN (17:02)
[2017-06-23] MEDS: MECLIZINE HCL 25 MG TABLET PO PRN (02:14)
[2017-06-23] MEDS: HEPARIN SOD (PORCINE) 5,000 UNIT/ML 1 ML SYRINGE SUBCUT SCH ×3 (05:25→21:40)
[2017-06-23] MEDS: LEVETIRACETAM 500 MG TABLET PO SCH ×2 (09:53→21:40)
--- NOTE | 2017-06-23 13:50 | PDOC PROGRESS REPORT ---
Subjective Progress Note for:: 06/23/17 Subjective:: Pt states that he is having leg pain. When patient was asked if he was dizzy pt stated that he needed something done of his leg pain. Pt's sister stated that she wanted to know about pt's EEG and explained that Neurology has not read it. Pt refused physical exam and told me to leave his room. Physical Exam Vital Signs: Temp Pulse Resp BP Pulse Ox 98.3 F 56 L 18 117/77 97 06/23/17 07:14 06/23/17 07:14 06/23/17 07:14 06/23/17 07:14 06/23/17 07:14 Intake & Output 06/22/17 06/23/17 06/24/17 06:59 06:59 06:59 Intake Total 1257 2227 360 Output Total 800 1150 250 Balance 457 1077 110 Weight 91.1 kg 87.6 kg General appearance: PRESENT: no acute distress, well-developed, well-nourished Head exam: PRESENT: atraumatic, normocephalic Eye exam: PRESENT: conjunctiva pink, EOMI, PERRLA. ABSENT: scleral icterus Ear exam: PRESENT: normal external ear exam Mouth exam: PRESENT: moist, tongue midline Neck exam: ABSENT: carotid bruit, JVD, lymphadenopathy, thyromegaly Respiratory exam: PRESENT: clear to auscultation gabriella. ABSENT: rales, rhonchi, wheezes Cardiovascular exam: PRESENT: RRR. ABSENT: diastolic murmur, rubs, systolic murmur Pulses: PRESENT: normal dorsalis pedis pul Vascular exam: PRESENT: normal capillary refill GI/Abdominal exam: PRESENT: normal bowel sounds, soft. ABSENT: distended, guarding, mass, organolmegaly, rebound, tenderness Rectal exam: PRESENT: deferred Extremities exam: PRESENT: full ROM. ABSENT: calf tenderness, clubbing, pedal edema Neurological exam: ABSENT: motor sensory deficit Psychiatric exam: PRESENT: appropriate affect, normal mood. ABSENT: homicidal ideation, suicidal ideation Skin exam: PRESENT: dry, intact, warm. ABSENT: cyanosis, rash Results Laboratory Results: 06/21/17 04:28 06/21/17 04:28 Impressions: Head CT 06/20/17 00:00 IMPRESSION: NORMAL BRAIN CT WITHOUT CONTRAST. Head MRI 09/17/17 00:00 IMPRESSION: NORMAL MRI OF THE BRAIN WITHOUT AND WITH INTRAVENOUS GADOLINIUM CONTRAST. EVIDENCE OF ACUTE STROKE: NO. Assessment & Plan - Diagnosis (1) New onset seizure Is this a current diagnosis for this admission?: Yes Plan: Continue Keppra (2) Benign positional vertigo Qualifiers: Laterality: unspecified laterality Qualified Code(s): H81.10 - Benign paroxysmal vertigo, unspecified ear Is this a current diagnosis for this admission?: Yes Plan: Continue Meclizine (3) Cocaine abuse Is this a current diagnosis for this admission?: Yes Plan: Encourage not to use street drugs. (4) Marijuana abuse Is this a current diagnosis for this admission?: Yes Plan: Encourage not to use street drugs. (5) Polysubstance abuse Is this a current diagnosis for this admission?: Yes Plan: Encouraged pt not to use drugs. (6) Depression Qualifiers: Depression Type: unspecified Qualified Code(s): F32.9 - Major depressive disorder, single episode, unspecified Is this a current diagnosis for this admission?: Yes Plan: Consult placed for Mental Health. - Time Time Spent with patient: 15-24 minutes - Pt will be seen by Dr. Kahn.
[2017-06-23] MEDS: TEMAZEPAM 7.5 MG CAPSULE PO SCH (21:41)
[2017-06-24] MEDS: MECLIZINE HCL 25 MG TABLET PO PRN (01:13)
[2017-06-24] MEDS: HEPARIN SOD (PORCINE) 5,000 UNIT/ML 1 ML SYRINGE SUBCUT SCH ×3 (05:47→21:12)
--- NOTE | 2017-06-24 08:28 | EEG PRO FEE REPORT ---
EEG INTERPRETATION PATIENT NAME: DARI GRIFFITHS ROOM#: [id number] ORDER#: [id number] DATE OF STUDY: 06/22/2017 : 1960 REFERRING MD: JENNIFER GONZALES M.D. DIAGNOSIS: Seizure REPORT This is a 57 year old male who was said to have had a seizure. The background activity is 7-8 intermixed theta and alpha. At times the patient appears slightly drowsy but theta is seen throughout the tracing which could imply some very minimal slowing in view of the age of 57; this is generalized and very very mild. One cannot call definite sleep though so I would say the record is most consistent with some very very very mild generalized slowing such as could be seen in a toxic or metabolic problem the amplitude asymmetry is unremarkable. FINAL IMPRESSION: Minimally abnormal EEG because of very mild slowing that is generalized; clinical correlation recommended. INTERPRETING PHYSICIAN: LEWIS GALE M.D. /: MTEFCARLOTTA TT: [id number] ID: [id number] /: [id number] TD: [id number] JOB: [id number] cc:Zahida SURESH M.D. ABDELAZIZ ELSANJAK, M.D. >
[2017-06-24] MEDS: LEVETIRACETAM 500 MG TABLET PO SCH ×2 (09:49→21:06)
[2017-06-24 10:57] LABS: MAGNESIUM 1.9 mg/dL (1.6-2.3); POTASSIUM 3.9 mmol/L (3.6-5.0)
[2017-06-24 11:11] LABS: CREATINE KINASE MB < 0.22 ng/mL (<4.55); TROPONIN I < 0.012 ng/mL
[2017-06-24] MEDS ORDERED: MAGNESIUM OXIDE 400 MG TABLET PO ONE ×2 (13:00→14:00)
[2017-06-24] MEDS ORDERED: POTASSIUM CHLORIDE 10 MEQ TABLET.SA PO ONE (13:00)
[2017-06-24] MEDS: ACETAMINOPHEN 325 MG TABLET PO PRN (13:11)
[2017-06-24 17:08] LABS: CREATINE KINASE MB < 0.22 ng/mL (<4.55); TROPONIN I < 0.012 ng/mL
--- NOTE | 2017-06-24 18:33 | PDOC PROGRESS REPORT ---
Subjective Progress Note for:: 06/24/17 Subjective:: Patient complains of dizziness on standing. No nausea or vomiting nor any headache chills or fever. Staff reports ventricular tachycardia which is nonsustained. Patient denies any chest pain or shortness of breath. The episode happened patient was having generalized shaking. Patient does not remember what happened. No syncopal episode witnessed however by the staff. Physical Exam Vital Signs: Temp Pulse Resp BP Pulse Ox 98.7 F 61 16 128/79 H 99 06/24/17 15:38 06/24/17 15:38 06/24/17 15:38 06/24/17 15:38 06/24/17 15:38 Intake & Output 06/23/17 06/24/17 06/25/17 06:59 06:59 06:59 Intake Total 2227 1580 888 Output Total 1150 1000 800 Balance 1077 580 88 Weight 87.6 kg 89.3 kg General appearance: PRESENT: no acute distress, cooperative Head exam: PRESENT: normocephalic Eye exam: PRESENT: EOMI Mouth exam: PRESENT: moist, neck supple Neck exam: ABSENT: JVD Respiratory exam: PRESENT: clear to auscultation gabriella, unlabored Cardiovascular exam: PRESENT: RRR. ABSENT: gallop GI/Abdominal exam: PRESENT: soft. ABSENT: distended, tenderness Extremities exam: ABSENT: pedal edema Neurological exam: PRESENT: alert, awake, oriented to person, oriented to place , oriented to time, oriented to situation Skin exam: PRESENT: dry, warm. ABSENT: cyanosis Results Laboratory Results: 06/21/17 04:28 06/24/17 10:21 06/24/17 10:21 Potassium 3.9 Magnesium 1.9 06/24/17 06/24/17 06/24/17 10:21 10:21 16:00 Creatine Kinase 39 L 32 L CK-MB (CK-2) < 0.22 Troponin I < 0.012 06/24/17 16:00 Creatine Kinase CK-MB (CK-2) < 0.22 Troponin I < 0.012 Impressions: Head CT 06/20/17 00:00 IMPRESSION: NORMAL BRAIN CT WITHOUT CONTRAST. Head MRI 06/21/17 00:00 IMPRESSION: NORMAL MRI OF THE BRAIN WITHOUT AND WITH INTRAVENOUS GADOLINIUM CONTRAST. EVIDENCE OF ACUTE STROKE: NO. Assessment & Plan - Diagnosis (1) New onset seizure Is this a current diagnosis for this admission?: Yes (2) Dizziness Is this a current diagnosis for this admission?: Yes (3) Cocaine abuse Is this a current diagnosis for this admission?: Yes (4) Depression Qualifiers: Depression Type: unspecified Qualified Code(s): F32.9 - Major depressive disorder, single episode, unspecified Is this a current diagnosis for this admission?: Yes (5) Marijuana abuse Is this a current diagnosis for this admission?: Yes (6) Polysubstance abuse Is this a current diagnosis for this admission?: Yes - Time Time Spent with patient: 25-34 minutes - Plan Summary Plan Summary: We will hydrate the patient with normal saline. We will consult cardiology and obtain a 2D echocardiogram. I will increase the patient's Keppra, bring a potassium to above for and magnesium to above 2. If patient's symptoms resolved possible discharge in the morning. According to cardiology rhythm strip could be artifact. Awaiting echocardiogram report.
--- NOTE | 2017-06-24 19:41 | XCELERA REPORT ---
[address] [address] Transthoracic Echocardiogram Report Name: DARI GRIFFITHS JR Age: 57 yrs Gender: Male : 1960 Patient Status: Inpatient Patient Location: [address] [place] [address] Study Date: 06/24/2017 10:39 AM Height: 73 in Weight: 196 lb BSA: 2.1 m2 Procedure: A complete two-dimensional transthoracic echocardiogram was performed (2D, M-mode, spectral and color flow Doppler). The study was technically adequate with some images being suboptimal in quality. Reason For Study: Cardiomyopathy, vtach Ordering Physician: COREY PUENTES Performed By: Eugene Fagan Interpretation Summary The left ventricular ejection fraction is normal. Doppler measurements suggest pseudonormalized left ventricular relaxation, which is associated with grade II/IV or mild to moderate diastolic dysfunction There is borderline concentric left ventricular hypertrophy. The left ventricle is grossly normal size. Wall motion cannot be accurately commented on, but no definite regional wall motion abnormalities noted. The right ventricular systolic function is normal. Borderline right atrial enlargement. Borderline left atrial enlargement. There is a trace to mild amount of mitral regurgitation There is no mitral valve stenosis. No aortic regurgitation is present. There is no aortic valve stenosis There is a trace to mild amount of tricuspid regurgitation Right ventricular systolic pressure is at the upper limits of normal The aortic root is not well visualized but is probably normal size. The inferior vena cava appeared normal and decreased > 50% with respiration (RAP 5-10 mmHg) There is no pericardial effusion. MMode/2D Measurements & Calculations RVDd: 3.0 cm LVIDd: 5.8 cm FS: 40.9 % Ao root diam: 3.6 cm IVSd: 1.1 cm LVIDs: 3.4 cm EDV(Teich): 165.6 ml LVPWd: 0.96 cm ESV(Teich): 48.1 ml Ao root area: 10.0 cm2 EF(Teich): 70.9 % Doppler Measurements & Calculations MV E max herb: MV dec slope: Ao V2 max: LV V1 max P.5 cm/sec 140.7 cm/sec 3.7 mmHg MV A max herb: 172.0 cm/sec2 Ao max PG: LV V1 max: 31.5 cm/sec MV dec time: 7.9 mmHg 96.2 cm/sec MV E/A: 1.3 0.23 sec PA V2 max: PI end-d herb: TR max herb: RAP systole: 75.1 cm/sec 108.6 cm/sec 215.3 cm/sec 5.0 mmHg PA max PG: TR max P.3 mmHg 18.6 mmHg RVSP(TR): 23.6 mmHg Left Ventricle The left ventricle is grossly normal size. There is borderline concentric left ventricular hypertrophy. The left ventricular ejection fraction is normal. Doppler measurements suggest pseudonormalized left ventricular relaxation, which is associated with grade II/IV or mild to moderate diastolic dysfunction. Wall motion cannot be accurately commented on, but no definite regional wall motion abnormalities noted. Right Ventricle The right ventricle is grossly normal size. There is normal right ventricular wall thickness. The right ventricular systolic function is normal. Atria Borderline right atrial enlargement. Borderline left atrial enlargement. Interarterial septum not well visualized and not well dopplered. Cannot comment on ASD/PFO presence. Mitral Valve The mitral valve leaflets are sclerotic, but show no functional abnormalities. There is no mitral valve stenosis. There is a trace to mild amount of mitral regurgitation. Aortic Valve The aortic valve is grossly normal. There is no aortic valve stenosis. No aortic regurgitation is present. Tricuspid Valve The tricuspid valve is not well visualized, but is grossly normal. There is no tricuspid stenosis. There is a trace to mild amount of tricuspid regurgitation. Right ventricular systolic pressure is at the upper limits of normal. Pulmonic Valve The pulmonic valve is not well visualized. Great Vessels The aortic root is not well visualized but is probably normal size. The inferior vena cava appeared normal and decreased > 50% with respiration (RAP 5-10 mmHg). Effusions There is no pericardial effusion. : COREY PUENTES > Janice Bhatia
[2017-06-24] MEDS: TEMAZEPAM 7.5 MG CAPSULE PO SCH (21:06)
[2017-06-24 23:43] LABS: CREATINE KINASE MB < 0.22 ng/mL (<4.55); TROPONIN I < 0.012 ng/mL
[2017-06-25] MEDS: NORMAL SALINE 1000 ML 1,000 ML IV PRN ×3 (01:10→22:29)
[2017-06-25] MEDS: HEPARIN SOD (PORCINE) 5,000 UNIT/ML 1 ML SYRINGE SUBCUT SCH ×3 (05:17→21:59)
[2017-06-25] MEDS: LEVETIRACETAM 500 MG TABLET PO SCH ×2 (10:27→21:59)
[2017-06-25] MEDS ORDERED: REGADENOSON INJ 0.4 MG/5 ML DISP.SYRIN IV ONE (11:30)
[2017-06-25] MEDS ORDERED: AMINOPHYLLINE INJ/PF 250 MG/10 ML SDV IV ONE (11:30)
--- NOTE | 2017-06-25 11:51 | PDOC CONSULTATION ---
Consultation Consult Date: 06/24/17 Attending physician:: FATUMA EUGENE Consult reason:: Ventricular tachycardia History of Present Illness Admission Date/PCP: 06/20/17 20:43 Patient complains of: Seizures History of Present Illness: DARI GRIFFITHS JR is a 57 year old male With a past medical history of alcohol dependence and polysubstance abuse who was in his usual state of health until approximately 30 minutes prior to presentation to the emergency room. Having vomiting and witnessed seizures while at work. EMS administered 5 mg Valium and he was brought to the emergency room for evaluation. He had 3 additional seizures without injury or incontinence and was given 1 g of Keppra and has a brief postictal period. Patient's workup and labs are unremarkable with exception to drug screen positive for cocaine, marijuana and benzodiazepine. Patient accompanied by his sister and adamantly denies recent cocaine but notably giving at least 3 different dates of last cocaine use. Patient was subsequently admitted for observation. On telemetry monitoring he was noted to have significant heart rhythm rhythm disturbance. He was noted to be shaking by the nurses at that time. It seems to them that it was ventricular tachycardia/ventricular fibrillation but patient was noted to have normal color , pulse at that time. I was therefore asked to evaluate patient. Patient was actually seen yesterday and orders were written for 2D echo and also a nuclear stress test. These were related to the hospitalist. Rhythm strips were reviewed. Past Medical History Cardiac Medical History: Reports: None Pulmonary Medical History: Reports: None EENT Medical History: Reports: None Neurological Medical History: Reports: Seizures Endocrine Medical History: Reports: None Renal/ Medical History: Reports: None Malignancy Medical History: Reports: None GI Medical History: Reports: None Musculoskeltal Medical History: Reports: None Skin Medical History: Reports: None Psychiatric Medical History: Reports: Alcohol Dependency, Substance Abuse Denies: Depression Hematology: Reports: None Infectious Medical History: Reports: None Past Surgical History Past Surgical History: Reports: None Social History Information Source: Patient Lives with: Family Smoking Status: Never Smoker Frequency of Alcohol Use: Occasional Hx Recreational Drug Use: Yes Drugs: Cocaine, Marijuana - Advance Directive Resuscitation Status: Full Code Surrogate healthcare decision maker:: Patient sister is the surrogate decision-maker Family History Family History: Arthritis, DM, Hypertension, Malignancy, Other - Negative for sudden cardiac or premature CAD in the family Parental Family History Reviewed: Yes Children Family History Reviewed: Yes Sibling(s) Family History Reviewed.: Yes Medication/Allergy Home Medications: Levetiracetam [Keppra 500 mg Tablet] 500 mg PO Q12 #60 tablet 06/23/17 Meclizine HCl [Antivert 25 mg Tablet] 25 mg PO Q6HP PRN #30 tablet 06/23/17 Allergies/Adverse Reactions: No Known Allergies Allergy (Verified 06/20/17 16:12) Review of Systems Review of Systems: Please see history of present illness and past medical history as wall. Constitutional: No fever or chills reported. Head : No recent chronic headaches, recent head injury. Eyes: No recent eye pain, diplopia, redness, discharge, acute visual changes. Ears: No recent chronic ear pain, acute hearing loss, ear discharge. Oral cavity: No recent ulcerations, bleeding, oral cavity discomfort. Neck: No recent acute neck pain reported. Hematologic: No recent easy bruising or bleeding or hematologic malignancy reported. Lymphatic: No recent lymphatic malignancy, chronic lymphadenopathy reported yet Cardiovascular system review: See history of present illness. Respiratory system review: No recent chronic cough, hemoptysis, blood clots in the lungs reported. Mild Shortness of breath on exertion Gastrointestinal system review: Negative for any recent acute or chronic abdominal pain, hematemesis, melena, recent change in bowel habits. Genitourinary system review: No recent acute or chronic hematuria, flank pain, UTI etc. reported. Skin system review: Negative for any recent abnormal bruising, no rash, no pruritus reported. Neurologic: No prior history of strokes, mini strokes, seizure disorder. Psychologic: No history of major psychosis or major depression reported. Musculoskeletal: Minor aches and pains reported. No acute joint swelling reported. Endocrine: No recent polyuria, polydipsia, recent heat or cold intolerance. Physical Exam Vital Signs: Temp Pulse Resp BP Pulse Ox 98.1 F 55 L 16 111/63 98 06/25/17 07:33 06/25/17 07:33 06/25/17 07:33 06/25/17 07:33 06/25/17 07:33 Intake & Output 06/24/17 06/25/17 06/26/17 06:59 06:59 06:59 Intake Total 1580 4002 Output Total 1000 1625 Balance 580 2377 Weight 89.3 kg 89.9 kg Exam: GENERAL: well-nourished and in no acute distress. Alert and oriented x3, patient is noted to be slightly lethargic but answers appropriately. HEAD: Atraumatic, normocephalic. EYES: Pupils equal round and reactive to light, extraocular movements intact, sclera anicteric, conjunctiva are normal. ENT: TMs normal, nares patent, oropharynx clear without exudates. Moist mucous membranes. No oral ulcerations or bleeding gums noted NECK: supple without lymphadenopathy. Trachea is central. No cervical or axillary lymphadenopathy noted. Carotids are 2+, JVD WNL LUNGS: Respiration seems nonlabored, no significant accessory muscle action noted. Breath sounds clear to auscultation bilaterally and equal noted. No wheezes rales or rhonchi noted. No significant dullness noted on percussion. CHEST: Palpation of the chest wall shows no significant chest wall tenderness. No other significant abnormalities noted. HEART: [place] PRE CODER, No PSH, 1/6 FABIENNE aortic area, 1/6 daugherty systolic murmur mitral area, no rubs, no gallops. ABDOMEN: Soft, no significant tenderness appreciated, normoactive bowel sounds. No guarding, no rebound. No rigidity noted . No masses appreciated. EXTREMITIES: Pedal pulses are 1-2+, no calf tenderness noted. No clubbing or cyanosis. Negative pedal edema noted NEUROLOGICAL: Focused neurological exam showed no significant neurologic deficit. Normal speech, no focal weakness appreciated. PSYCH: Normal mood, normal affect. Judgment and insight within normal limits. SKIN: No significant ecchymosis, rash, ulcerations or signs of pruritus noted. MUSCULOSKELETAL EXAM: No significant joint swelling noted. Results Laboratory Results: 06/21/17 04:28 06/24/17 10:21 06/24/17 10:21 Potassium 3.9 Magnesium 1.9 06/24/17 06/24/17 06/24/17 10:21 10:21 16:00 Creatine Kinase 39 L 32 L CK-MB (CK-2) < 0.22 Troponin I < 0.012 06/24/17 06/24/17 06/24/17 16:00 22:40 22:40 Creatine Kinase 26 L CK-MB (CK-2) < 0.22 < 0.22 Troponin I < 0.012 < 0.012 EKG Comments: Sinus rhythm, no acute ST-T wave changes noted Impressions: Head CT 06/20/17 00:00 IMPRESSION: NORMAL BRAIN CT WITHOUT CONTRAST. Head MRI 06/21/17 00:00 IMPRESSION: NORMAL MRI OF THE BRAIN WITHOUT AND WITH INTRAVENOUS GADOLINIUM CONTRAST. EVIDENCE OF ACUTE STROKE: NO. Assessment & Plan - Diagnosis (1) Hypertension Qualifiers: Hypertension type: essential hypertension Qualified Code(s): I10 - Essential (primary) hypertension Is this a current diagnosis for this admission?: Yes (2) Ventricular dysrhythmia Is this a current diagnosis for this admission?: Yes (3) Cocaine abuse Is this a current diagnosis for this admission?: Yes (4) Marijuana abuse Is this a current diagnosis for this admission?: Yes (5) New onset seizure Is this a current diagnosis for this admission?: Yes - Notes Notes: Ventricular dysrhythmia: Rhythm strips were reviewed. To my review they seem artifactual rather than any significant cardiac dysrhythmia. However for risk stratification, will recommend a 2D echocardiogram and also a nuclear stress test. Patient does have some cardiac risk factors. Hypertension: Reasonably well controlled. Blood pressure goal in this patient is 135/85 or less. This was discussed with the patient. Currently blood pressure under reasonable control. Better medication for this patient are ANA inhibitor/ARB/beta scooter etc. discussed side effects of uncontrolled hypertension and also severe hypotension. Polysubstance abuse: Patient advised against abuse of cocaine and marijuana. Patient understood. New onset seizures: Agree with neurology consultation and antiepileptics as needed. Further plan after review of 2D echo and nuclear stress test. - Time Time Spent: 30 to 50 Minutes - CODE STATUS was discussed, patient remains full code. Surrogate decision-maker unchanged. Multiple medical problems were addressed. More than 50% of the time spent coordinating care, discussing management plans with involved caregivers. Management plans discussed with involved personnels. Medical decision making was of moderate to high complexity , patient's has multiple comorbidities. Medications reviewed and adjusted accordingly: Yes
--- NOTE | 2017-06-25 11:53 | PDOC PROGRESS REPORT ---
Subjective Progress Note for:: 06/25/17 Subjective:: Patient seems to be doing better with gradual improvement. Pt is denying any chest arm or neck discomfort. Patient denying any PND, orthopnea. Patient denied any sustained palpitations, dizziness, syncope, near syncope. Patient denying any fever chills. Patient denying any other significant discomfort. Patient is maintaining sinus rhythm. Nuclear stress test procedure, risk benefits were discussed. 2D echocardiogram discussed. Review of systems: Rest review of systems negative. Medications: Medications have been reviewed. Physical Exam Vital Signs: Temp Pulse Resp BP Pulse Ox 98.1 F 55 L 16 111/63 98 06/25/17 07:33 06/25/17 07:33 06/25/17 07:33 06/25/17 07:33 06/25/17 07:33 Intake & Output 06/24/17 06/25/17 06/26/17 06:59 06:59 06:59 Intake Total 1580 4002 Output Total 1000 1625 Balance 580 2377 Weight 89.3 kg 89.9 kg Exam: GENERAL: well-nourished and in no acute distress. Alert and oriented x3 HEAD: Atraumatic, normocephalic. EYES: Pupils equal round and reactive to light, extraocular movements intact, sclera anicteric, conjunctiva are normal. ENT: TMs normal, nares patent, oropharynx clear without exudates. Moist mucous membranes. No oral ulcerations or bleeding gums noted NECK: supple without lymphadenopathy. Trachea is central. No cervical or axillary lymphadenopathy noted. Carotids are 2+, JVD WNL LUNGS: Respiration seems nonlabored, no significant accessory muscle action noted. Breath sounds clear to auscultation bilaterally and equal noted. No wheezes rales or rhonchi noted. No significant dullness noted on percussion. CHEST: Palpation of the chest wall shows no significant chest wall tenderness. No other significant abnormalities noted. 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 ABDOMEN: Soft, no significant tenderness appreciated, normoactive bowel sounds. No guarding, no rebound. No rigidity noted . No masses appreciated. EXTREMITIES: Pedal pulses are 1-2+, no calf tenderness noted. No clubbing or cyanosis.trace to 1+ pedal edema noted NEUROLOGICAL: Focused neurological exam showed no significant neurologic deficit. Normal speech, no focal weakness appreciated. PSYCH: Normal mood, normal affect. Judgment and insight within normal limits. SKIN: No significant ecchymosis, rash, ulcerations or signs of pruritus noted. MUSCULOSKELETAL EXAM: No significant joint swelling noted. Results Laboratory Results: 06/21/17 04:28 06/24/17 10:21 06/24/17 06/24/17 06/24/17 10:21 10:21 16:00 Creatine Kinase 39 L 32 L CK-MB (CK-2) < 0.22 Troponin I < 0.012 06/24/17 06/24/17 06/24/17 16:00 22:40 22:40 Creatine Kinase 26 L CK-MB (CK-2) < 0.22 < 0.22 Troponin I < 0.012 < 0.012 Impressions: Head CT 06/20/17 00:00 IMPRESSION: NORMAL BRAIN CT WITHOUT CONTRAST. Head MRI 06/21/17 00:00 IMPRESSION: NORMAL MRI OF THE BRAIN WITHOUT AND WITH INTRAVENOUS GADOLINIUM CONTRAST. EVIDENCE OF ACUTE STROKE: NO. Assessment & Plan - Diagnosis (1) Hypertension Qualifiers: Hypertension type: essential hypertension Qualified Code(s): I10 - Essential (primary) hypertension Is this a current diagnosis for this admission?: Yes (2) Ventricular dysrhythmia Is this a current diagnosis for this admission?: Yes (3) Cocaine abuse Is this a current diagnosis for this admission?: Yes (4) Marijuana abuse Is this a current diagnosis for this admission?: Yes (5) New onset seizure Is this a current diagnosis for this admission?: Yes - Notes Notes: Ventricular dysrhythmia: Rhythm strips were reviewed. To my review they seem artifactual rather than any significant cardiac dysrhythmia. 2D echo shows normal LVEF. Nuclear stress test performed, results are pending at the time of dictation. They will be reported to the primary care attending and also patient later on today. Lab work reviewed. Electrolytes and magnesium WNL. Hypertension: Reasonably well controlled. Blood pressure goal in this patient is 135/85 or less. This was discussed with the patient. Currently blood pressure under reasonable control. Better medication for this patient are ANA inhibitor/ARB/beta scooter etc. discussed side effects of uncontrolled hypertension and also severe hypotension. Polysubstance abuse: Patient advised against abuse of cocaine and marijuana. Patient understood. New onset seizures: Patient evaluated by neurologist. EEG report reviewed.. Further plan after review nuclear stress test. - Time Time with patient: Greater than 35 minutes - CODE STATUS was discussed, patient remains full code. Surrogate decision-maker unchanged. Multiple medical problems were addressed. More than 50% of the time spent coordinating care, discussing management plans with involved caregivers. Management plans discussed with involved personnels. Medical decision making was of moderate to high complexity, patient's has multiple comorbidities. Medications reviewed and adjusted accordingly: Yes
[2017-06-25] MEDS ORDERED: ONDANSETRON HCL INJ/PF 4 MG/2 ML SDV IV PRN (14:30)
--- NOTE | 2017-06-25 14:47 | DRAGON STRESS TEST REPORT ---
INTRAVENOUS LEXISCAN CARDIOLITE STRESS TEST USING SINGLE PHOTON EMMISION COMPUTERIZED TOMOGRAPHIC. DATE OF PROCEDURE: June 25, 2017 INDICATION : Chest pain, cardiac dysrhythmia, cardiomyopathy. CARDIAC RISK FACTORS: Substance abuse, tobacco abuse, positive family history. RESTING EKG: Sinus rhythm, incomplete right bundle branch block pattern. STRESS EKG: No significant changes noted with LexiScan bolus REASON FOR TERMINATION: Protocol. PROCEDURE REPORT: Baseline heart rate 55 beats per minute with blood pressure of 112/75. Patient had no significant complaints. Heart rate at 2 minutes post bolus 101 with a blood pressure of 118/83. 3 minutes post bolus heart rate 88 with blood pressure of 128/86. No significant EKG changes were noted. Patient had no significant complaints during the procedure or postprocedure. Patient did have some nausea and vomiting. Patient injected with Aminophyllin 75 mg at 3 minutes or later after Lexiscan bolus. CONCLUSIONS: Normal EKG and hemodynamic response to IV LexiScan. NUCLEAR DATA: At rest the patient was given 13.70 millicuries of technetium 99 sestamibi injected intravenously. As per protocol rest gated SPECT images were obtained. Subsequently the patient was given intravenous LexiScan at a dose of 0.4 mg in 5 mL intravenously, followed by flush with normal saline. Subsequently the stress dose of 39.4 millicuries of technetium 99 sestamibi was injected intravenously. As per protocol stress gated images were obtained. NUCLEAR INTERPRETATION: Both raw and processed data were used for interpretation. Visual, qualitative, computer-generated quantitative data was used. There was good myocardial uptake of technetium compound. Motion artifact and soft tissue attenuations were noted. Increased visceral uptake was noted. No definitive areas of transient perfusion defect noted except for a small area of borderline decreased uptake in the mid inferior wall with SDS of 2. There were however no corresponding wall motion abnormality. This could be artifactual but cannot rule out an area of mild ischemia. No definitive areas of fixed perfusion defect or scars noted. EKG gated imaging showed LV EF at 51 %, rest and stress gated EF similar visually. T. I D. ratio was 1.17. Lung heart ratio noted to be within normal limits 0.30. No significant extracardiac and abnormal radiotracer activities were noted. RV free wall uptake was noted to be borderline increased. IMPRESSION: Also refer to comments under nuclear interpretation. Also test results needs to be interpreted in the context of pretest probability. 1. No definitive areas of transient perfusion defect noted except for a small area of borderline decreased uptake in the mid inferior wall with SDS of 2. There were however no corresponding wall motion abnormality. This could be artifactual but cannot rule out an area of mild ischemia. Clinical correlation requested. Based on SDS score, overall risk is on the low side and medical management is being recommended. 2. There is no definitive scintigraphic evidence of myocardial infarction/scar. 3. EKG gated imaging shows left ventricular ejection fraction of approximately 51 %. RV free wall uptake noted to be borderline increased. 4. Clinical correlation requested as occasionally single vessel disease or balanced ischemia could be missed. In approximately 10% of the cases Lexiscan may not cause adequate vasodilatory stress. RECOMMENDATIONS: Aggressive risk factor modification, medical therapy. Clinical correlation with echocardiogram derived ejection fraction. Inability to exercise by itself can lead to increased cardiovascular event risks. Consider cardiology consultation and or follow-up if clinically indicated. I AM AVAILABLE FOR CARDIOLOGY CONSULTATION AND FOLLOWUP IF REQUESTED BY PHILLIP Bhatia M.D., KAREN [employer] depot manager, Board certified in cardiovascular diseases, Nuclear cardiology, Echocardiography Cardiac CT and cardiac MRI Ph. [phone] CARLENE
--- NOTE | 2017-06-25 14:59 | PDOC PROGRESS REPORT ---
Subjective Progress Note for:: 06/25/17 Subjective:: No seizure episode reported. No tachycardia or cardiac arrhythmia reported as well. Vision denies any chest pain or shortness of breath. His dizziness is better. No diarrhea nausea or vomiting at this time. Physical Exam Vital Signs: Temp Pulse Resp BP Pulse Ox 98.3 F 59 L 18 131/79 H 99 06/25/17 11:14 06/25/17 11:14 06/25/17 11:14 06/25/17 11:14 06/25/17 11:14 Intake & Output 06/24/17 06/25/17 06/26/17 06:59 06:59 06:59 Intake Total 1580 4002 Output Total 1000 1625 Balance 580 2377 Weight 89.3 kg 89.9 kg General appearance: PRESENT: no acute distress, cooperative Head exam: PRESENT: normocephalic Eye exam: PRESENT: EOMI Mouth exam: PRESENT: moist, neck supple Neck exam: ABSENT: JVD Respiratory exam: PRESENT: clear to auscultation gabriella Cardiovascular exam: PRESENT: RRR. ABSENT: gallop GI/Abdominal exam: PRESENT: soft. ABSENT: distended Extremities exam: ABSENT: pedal edema Neurological exam: PRESENT: alert, awake Skin exam: PRESENT: dry, warm. ABSENT: cyanosis Results Laboratory Results: 06/21/17 04:28 06/24/17 10:21 06/24/17 06/24/17 06/24/17 10:21 10:21 16:00 Creatine Kinase 39 L 32 L CK-MB (CK-2) < 0.22 Troponin I < 0.012 06/24/17 06/24/17 06/24/17 16:00 22:40 22:40 Creatine Kinase 26 L CK-MB (CK-2) < 0.22 < 0.22 Troponin I < 0.012 < 0.012 Impressions: Head CT 06/20/17 00:00 IMPRESSION: NORMAL BRAIN CT WITHOUT CONTRAST. Head MRI 06/21/17 00:00 IMPRESSION: NORMAL MRI OF THE BRAIN WITHOUT AND WITH INTRAVENOUS GADOLINIUM CONTRAST. EVIDENCE OF ACUTE STROKE: NO. Assessment & Plan - Diagnosis (1) New onset seizure Is this a current diagnosis for this admission?: Yes (2) Dizziness Is this a current diagnosis for this admission?: Yes (3) Cocaine abuse Is this a current diagnosis for this admission?: Yes (4) Depression Qualifiers: Depression Type: unspecified Qualified Code(s): F32.9 - Major depressive disorder, single episode, unspecified Is this a current diagnosis for this admission?: Yes (5) Marijuana abuse Is this a current diagnosis for this admission?: Yes (6) Polysubstance abuse Is this a current diagnosis for this admission?: Yes - Time Time Spent with patient: 15-24 minutes - Plan Summary Plan Summary: Patient underwent stress test today. Cardiology reports indeterminate result. Recommended CTA of the chest to rule out pulmonary embolism. We will put an order in her chest CT.
--- NOTE | 2017-06-25 17:30 | RADIOLOGY REPORT (SQ) ---
EXAM DESCRIPTION: CTA CHEST COMPLETED DATE/TIME: 06/25/2017 4:58 pm REASON FOR STUDY: pulmonary embolism COMPARISON: None. TECHNIQUE: CT scan of the chest performed using helical scanning technique with dynamic intravenous contrast injection. Images reviewed with lung, soft tissue and bone windows. Reconstructed coronal and sagittal MPR images reviewed. Additional 3 dimensional post-processing performed to develop Maximal Intensity Projection images (ND P). All images stored on PACS. All CT scanners at this facility use dose modulation, iterative reconstruction, and/or weight based d osing when appropriate to reduce radiation dose to as low as reasonably achievable (ALARA). [facility]: Dose Right [facility]: CareDose [facility]: Dose Right [facility]: Teradose 4D [facility]: Invuity CONTRAST TYPE AND DOSE: contrast/concentration: Isovue 370.00 mg/ml; Total Contrast Delivered: 76.0 ml; Total Saline Delivered: 80.0 ml Contrast bolus optimized for the pulmonary arteries. Not diagnostic for the aorta. RENAL FUNCTION: Creatinine 1.1 BUN 23 RADIATION DOSE: Up-to-date CT equipment and radiation dose reduction techniques were employed. CTDIv ol: 6.6 - 39.7 mGy. DLP: 644 mGy-cm. . LIMITATIONS: None. FINDINGS: LUNGS AND PLEURA: No masses, infiltrates, pneumothorax. No pleural effusions, calcificati ons. AORTA AND GREAT VESSELS: No aneurysm. Contrast bolus not optimized for the aorta. HEART: No pericardial effusion. No significant coronary artery calcifications. PULMONARY ARTERIES: No emboli visualized in the main pulmonary arteries or the segmental branches. HILAR AND MEDIASTINAL STRUCTURES: No identified masses or abnormal nodes. HARDWARE: None in the chest. UPPER ABDOMEN: No significant findings. Limited exam. THYROID AND OTHER SOFT TISSUES: No masses. No adenopathy. BONES: No acute or significant finding. 3D MIPS: Confirm above findings. OTHER: No other significant finding. IMPRESSION: NORMAL CTA OF THE CHEST. NO PULMONARY EMBOLI. COMMENT: Quality ID # [id number]: Final reports with documentation of one or more dose reduction techniques (e.g., Automated exposure control, adjustment of the mA and/or kV according to patient size, use of iterative reconstruction technique) TECHNICAL DOCUMENTATION: JOB ID: [id number]- All Rights Reserved
[2017-06-25] MEDS: TEMAZEPAM 7.5 MG CAPSULE PO SCH (21:59)
[2017-06-26] MEDS: HEPARIN SOD (PORCINE) 5,000 UNIT/ML 1 ML SYRINGE SUBCUT SCH (05:17)
[2017-06-26] MEDS: NORMAL SALINE 1000 ML 1,000 ML IV PRN (05:57)
[2017-06-26] MEDS: LEVETIRACETAM 500 MG TABLET PO SCH (09:18)
--- NOTE | 2017-06-26 12:22 | PDOC DISCHARGE SUMMARY ---
General - Admit/Disc Date/PCP Admission Date/Primary Care Provider: 06/25/17 15:12 Discharge Date: 06/26/17 - Discharge Diagnosis (1) New onset seizure Is this a current diagnosis for this admission?: Yes (2) Dizziness Is this a current diagnosis for this admission?: Yes (3) Cocaine abuse Is this a current diagnosis for this admission?: Yes (4) Depression Is this a current diagnosis for this admission?: Yes (5) Marijuana abuse Is this a current diagnosis for this admission?: Yes (6) Polysubstance abuse Is this a current diagnosis for this admission?: Yes - Additional Information Resuscitation Status: Full Code Discharge Diet: Cardiac - low fat, low salt Discharge Activity: Activity As Tolerated, Balance Activity w/Rest, Other - 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 06/26/17 Levetiracetam [Keppra 500 mg Tablet] 750 mg PO Q12 #60 tablet 06/26/17 Additional Information: Stop cocaine. No driving until evaluated by neurologist or primary care physician. History of Present Illness Patient complains of: Seizure History of Present Illness: DRAI GRIFFITHS JR is a 57 year old male With a past medical history of alcohol dependence and polysubstance abuse who was in his usual state of health until approximately 30 minutes prior to presentation. Having vomiting and witnessed seizures while at work EMS administered 5 mg Valium and he was brought to the emergency room for evaluation. He had 3 additional seizures without injury or incontinence and was given 1 g of Keppra and has a brief postictal period. Patient's workup and labs are unremarkable with exception to drug screen positive for cocaine, marijuana and benzodiazepine. Patient accompanied by his sister and adamantly denies recent cocaine but notably giving at least 3 different dates of last cocaine use. He is referred to the hospitalist for observation. For details please refer to history and physical examination performed by the admitting physician. Hospital Course Hospital Course: The patient was admitted to observation. The patient was started on Keppra for seizures. The patient had a CT scan of the brain that was negative for any acute abnormality. MRI of the brain was reportedly normal as well. Eventually an EEG was performed but no definite seizure was noted. The patient's course was noted for possible ventricular arrhythmia and therefore cardiology was consulted. Serial cardiac enzymes were negative. Patient eventually underwent stress test revealing no reversible ischemia as reported. Cardiology thinks that the rhythm likely are artifacts. Other workups done include echocardiogram showing a normal ejection fraction, and a CTA of the chest showing no pulmonary embolism. There are minimal calcifications on the coronary artery as reported by cardiology and therefore recommended aspirin, as well as lipid therapy. Patient and family however refused to take cholesterol medication at this time. Reportedly last month cholesterol check with his doctor and they will try to find the results for taking any cholesterol medicine. Patient had episode of possible seizure in the hospital and therefore the Keppra dose was titrated. No further seizures were reported. Rest of the hospital stays unremarkable. Physical Exam Vital Signs: Temp Pulse Resp BP Pulse Ox 98.2 F 63 18 122/81 99 06/26/17 07:47 06/26/17 07:47 06/26/17 07:47 06/26/17 07:47 06/26/17 07:47 Intake & Output 06/25/17 06/26/17 06/27/17 06:59 06:59 06:59 Intake Total 4952 Output Total 575 Balance 4377 Weight 90.8 kg General appearance: PRESENT: no acute distress, cooperative, well-developed Head exam: PRESENT: normocephalic Eye exam: PRESENT: EOMI Mouth exam: PRESENT: moist, neck supple Neck exam: ABSENT: JVD Respiratory exam: PRESENT: clear to auscultation gabriella Cardiovascular exam: PRESENT: RRR. ABSENT: gallop GI/Abdominal exam: PRESENT: normal bowel sounds, soft. ABSENT: distended, tenderness Extremities exam: ABSENT: pedal edema Neurological exam: PRESENT: alert, awake, oriented to situation Skin exam: PRESENT: dry, warm. ABSENT: cyanosis Results Impressions: Head CT 06/20/17 00:00 IMPRESSION: NORMAL BRAIN CT WITHOUT CONTRAST. Head MRI 06/21/17 00:00 IMPRESSION: NORMAL MRI OF THE BRAIN WITHOUT AND WITH INTRAVENOUS GADOLINIUM CONTRAST. EVIDENCE OF ACUTE STROKE: NO. Chest/Abdomen CTA 06/25/17 00:00 IMPRESSION: NORMAL CTA OF THE CHEST. NO PULMONARY EMBOLI. Qualifiers PATEINT BEING DISCHARGED WITH ANY OF THE FOLLOWING DIAGNOSIS?: No Plan Discharge Plan: Follow-up with primary care physician in 1 week. Follow-up with neurologist in 1 week as well. Time Spent: Less than 30 Minutes
[2017-06-26 15:21] VITALS: BP 127/88
--- NOTE | 2017-06-27 17:23 | PDOC PROGRESS REPORT ---
Subjective Progress Note for:: 06/26/17 Subjective:: Patient was actually seen in the morning yesterday on rounds. I believe the note was pending. Patient's sister was in the room. Patient's cardiac status was discussed with her in detail. Patient seems to be doing better with gradual improvement. Pt is denying any chest arm or neck discomfort. Patient denying any PND, orthopnea. Patient denied any sustained palpitations, dizziness, syncope, near syncope. Patient denying any fever chills. Patient denying any other significant discomfort. Patient is maintaining sinus rhythm. Nuclear stress test results were discussed.. 2D echocardiogram discussed. Review of systems: Rest review of systems negative. Medications: Medications have been reviewed. Physical Exam Vital Signs: Temp Pulse Resp BP Pulse Ox 97.6 F 65 16 127/88 H 100 06/26/17 15:19 06/26/17 15:19 06/26/17 15:19 06/26/17 15:19 06/26/17 15:19 Intake & Output 06/26/17 06/27/17 06/28/17 06:59 06:59 06:59 Intake Total 4952 600 Output Total 575 500 Balance 4377 100 Weight 90.8 kg Exam: GENERAL: well-nourished and in no acute distress. Alert and oriented x3 HEAD: Atraumatic, normocephalic. EYES: Pupils equal round and reactive to light, extraocular movements intact, sclera anicteric, conjunctiva are normal. ENT: TMs normal, nares patent, oropharynx clear without exudates. Moist mucous membranes. No oral ulcerations or bleeding gums noted NECK: supple without lymphadenopathy. Trachea is central. No cervical or axillary lymphadenopathy noted. Carotids are 2+, JVD WNL LUNGS: Respiration seems nonlabored, no significant accessory muscle action noted. Breath sounds clear to auscultation bilaterally and equal noted. No wheezes rales or rhonchi noted. No significant dullness noted on percussion. CHEST: Palpation of the chest wall shows no significant chest wall tenderness. No other significant abnormalities noted. 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 ABDOMEN: Soft, no significant tenderness appreciated, normoactive bowel sounds. No guarding, no rebound. No rigidity noted . No masses appreciated. EXTREMITIES: Pedal pulses are 1-2+, no calf tenderness noted. No clubbing or cyanosis.trace to 1+ pedal edema noted NEUROLOGICAL: Focused neurological exam showed no significant neurologic deficit. Normal speech, no focal weakness appreciated. PSYCH: Normal mood, normal affect. Judgment and insight within normal limits. SKIN: No significant ecchymosis, rash, ulcerations or signs of pruritus noted. MUSCULOSKELETAL EXAM: No significant joint swelling noted. Results EKG Comments: Telemetry strips were reviewed. No recurrence of significant arrhythmias noted. Patient noted to be maintaining sinus rhythm. Impressions: Head CT 06/20/17 00:00 IMPRESSION: NORMAL BRAIN CT WITHOUT CONTRAST. Head MRI 06/21/17 00:00 IMPRESSION: NORMAL MRI OF THE BRAIN WITHOUT AND WITH INTRAVENOUS GADOLINIUM CONTRAST. EVIDENCE OF ACUTE STROKE: NO. Chest/Abdomen CTA 06/25/17 00:00 IMPRESSION: NORMAL CTA OF THE CHEST. NO PULMONARY EMBOLI. Assessment & Plan - Diagnosis (1) Hypertension Qualifiers: Hypertension type: essential hypertension Qualified Code(s): I10 - Essential (primary) hypertension Is this a current diagnosis for this admission?: Yes (2) Ventricular dysrhythmia Is this a current diagnosis for this admission?: Yes (3) Cocaine abuse Is this a current diagnosis for this admission?: Yes (4) Marijuana abuse Is this a current diagnosis for this admission?: Yes (5) New onset seizure Is this a current diagnosis for this admission?: Yes - Notes Notes: Nuclear stress test results were discussed with the patient and his sister again. There is some borderline abnormalities. It was felt that based on normal LVEF, medical management and risk factor modification would be the best initial option. Discussed that if patient should have recurrent chest pains, or other significant symptoms like increased shortness of breath, syncope or near syncope then cardiac catheterization should be considered. Ventricular dysrhythmia: Patient actually had no ventricular dysrhythmia and it was actually an artifactual findings. Evaluation suggests this. Cocaine abuse: Patient advised to quit using cocaine. Marijuana use: Patient advised again Cata use. New onset seizures, could be related to substance abuse. Patient offered follow-up. - Time Time with patient: Greater than 35 minutes - CODE STATUS was discussed, patient remains full code. Surrogate decision-maker Patient sister. Multiple medical problems were addressed. More than 50% of the time spent coordinating care, discussing management plans with involved caregivers. Management plans discussed with involved personnels. Medical decision making was of moderate to high complexity, patient's has multiple comorbidities. Medications reviewed and adjusted accordingly: Yes
== END 2017-06-26 15:57 | disposition home or self-care (01) | DRG 101 ==
LOC: ER 15:51 → EH 20:43 → UNDOADMOB 20:57 → EH 20:57 → 3W 23:22 → OBSVTOIN 06-25 15:12
PROVIDERS: ADMIT Internal Medicine; ATTEND Internal Medicine
DX: G40.89 Other seizures (principal); I10 Essential (primary) hypertension; I49.8 Other specified cardiac arrhythmias; F14.10 Cocaine abuse, uncomplicated; F12.10 Cannabis abuse, uncomplicated; F19.10 Other psychoactive substance abuse, uncomplicated; F32.9 Major depressive disorder, single episode, unspecified; Z72.89 Other problems related to lifestyle
CPT/HCPCS: 36415; 70450; 70553; 71275; 78452; 80048; 80053; 80307; 81001; 82330; 82550; 82553; 83735; 84132; 84443; 84484; 85025; 85610; 93005; 93010; 93017; 93306; 95819; 96361; 96374; 99285; A9500; A9577; J0280; J1644; J1953; J2785; J3490; J7030; Q9969

== ENCOUNTER 2018-04-15 23:03 | Emergency (ER) | payer MEDICAID ==
[2018-04-15] MEDS ORDERED: ASPIRIN 81 MG TABLET, CHEWABLE PO ONE (23:51)
[2018-04-16 00:32] LABS: ALANINE AMINOTRANSFERASE 24 U/L (21-72); ALBUMIN 4.9 g/dL (3.5-5.0); ALKALINE PHOSPHATASE 76 U/L (38-126); ANION GAP 13 (5-19); ASPARTATE AMINO TRANSFERASE 26 U/L (17-59); BILIRUBIN,DIRECT 0.3 mg/dL (0.0-0.4); BILIRUBIN,TOTAL 0.8 mg/dL (0.2-1.3); BLOOD UREA NITROGEN 24 mg/dL (7-20); CALCIUM 9.9 mg/dL (8.4-10.2); CARBON DIOXIDE 26 mmol/L (22-30); CHLORIDE 103 mmol/L (98-107); CREATINE KINASE 217 U/L (55-170); GLUCOSE 92 mg/dL (75-110); POTASSIUM 4.1 mmol/L (3.6-5.0); SODIUM 141.7 mmol/L (137-145); TOTAL PROTEIN 7.5 g/dL (6.3-8.2)
[2018-04-16 00:38] LABS: APPEARANCE,URINE SLIGHTLY-CLOUDY; BILIRUBIN,URINE NEGATIVE (NEGATIVE); COLOR,URINE YELLOW; GLUCOSE, URINE NEGATIVE (NEGATIVE); KETONES,URINE TRACE mg/dL (NEGATIVE); LEUKOCYTE ESTERASE,URINE NEGATIVE (NEGATIVE); NITRITE,URINE NEGATIVE (NEGATIVE); PROTEIN,URINE NEGATIVE (NEGATIVE); URINE SPECIFIC GRAVITY 1.029
[2018-04-16 00:44] LABS: CREATINE KINASE MB 4.19 ng/mL (<4.55)
[2018-04-16 00:45] LABS: TROPONIN I < 0.012 ng/mL
[2018-04-16 00:55] LABS: ABSOLUTE EOSINOPHILS # (AUTO) 0.1 10^3/uL (0.0-0.6); ABSOLUTE LYMPHOCYTES (AUTO) 1.9 10^3/uL (0.5-4.7); ABSOLUTE MONOCYTES (AUTO) 0.8 10^3/uL (0.1-1.4); ABSOLUTE NEUT (AUTO) 6.3 10^3/uL (1.7-8.2); BASOPHILS % (AUTO) 0.5 % (0-2); EOSINOPHILS % (AUTO) 1.1 % (0-6); HEMATOCRIT 40.1 % (37.9-51.0); LYMPHOCYTES % (AUTO) 20.7 % (13-45); MEAN CORPUSCULAR HEMOGLOBIN 32.3 pg (27.0-33.4); MEAN CORPUSCULAR HGB CONC 34.8 g/dL (32.0-36.0); MEAN CORPUSCULAR VOLUME 93 fl (80-97); MONOCYTES % (AUTO) 8.7 % (3-13); PLATELET COUNT 202 10^3/uL (150-450); RED BLOOD COUNT 4.32 10^6/uL (4.35-5.55); RED CELL DISTRIBUTION WIDTH 12.9 % (11.5-14.0); TOTAL CELLS COUNTED % (AUTO) 100 %; WHITE BLOOD COUNT 9.1 10^3/uL (4.0-10.5)
[2018-04-16 01:01] LABS: INTERNATIONAL RATION (INR) 1.03
[2018-04-16 01:02] LABS: PARTIAL THROMBOPLASTIN TIME 29.5 SEC (23.5-35.8)
--- NOTE | 2018-04-16 01:23 | RADIOLOGY REPORT (SQ) ---
EXAM DESCRIPTION: XR CHEST 2 VIEWS COMPLETED DATE/TME: 04/15/2018 23:48 CLINICAL HISTORY: Chest pain tightness and numbness to his arm and f COMPARISON: 06/25/2017 FINDINGS: Frontal and lateral views of the chest. Leads overlie the chest. The cardiomediastinal silhouette has normal size and contour. No consolidation, pneumothorax, or pleural effusion. No displaced rib fractures identified. Upper abdominal soft tissues are unremarkable. IMPRESSION: 1. No acute pulmonary process identified.
--- NOTE | 2018-04-16 01:54 | ER Document Report ---
ED General - General Chief Complaint: Chest Pain Stated Complaint: CHEST PAIN Time Seen by Provider: 04/15/18 23:47 Notes: Patient is a very pleasant 57-year-old male presents with complaint of onset of numbness and weakness into his left arm that radiated from his left neck. He then had numbness that went across his left chest and some slight discomfort. Says happened when he was in the shower. He said he then had weakness in his left arm for approximately 20 minutes and that eventually resolved. Patient denies any slurring of speech. He says a very slight mild headache. He does mention that earlier today he was noticed that he was much more dyspneic and short of breath whenever he did exert himself. He says he was climbing a ladder. He says he does this every day for work. He said the end of climbing a ladder he is very short of breath and felt tightness in his chest. He said this is atypical for him. Patient currently has no symptoms at this time has no further concerns. He has no previous history of stroke. No previous history of heart disease. He does have a strong family history of both stroke and heart disease. He denies any cocaine use. He does not smoke tobacco. He says he occasionally smokes marijuana. TRAVEL OUTSIDE OF THE [place] IN LAST 30 DAYS: No - Related Data Allergies/Adverse Reactions: No Known Allergies Allergy (Verified 06/20/17 16:12) Past Medical History - Social History Smoking Status: Never Smoker Frequency of alcohol use: Social Drug Abuse: Marijuana Family History: Arthritis, DM, Hypertension, Malignancy, Other - Negative for sudden cardiac or premature CAD in the family Patient has suicidal ideation: No Patient has homicidal ideation: No - Past Medical History Cardiac Medical History: Reports: Hx Hypertension Neurological Medical History: Reports: Hx Seizures Renal/ Medical History: Denies: Hx Peritoneal Dialysis Musculoskeletal Medical History: Reports Hx Musculoskeletal Trauma - Finger Psychiatric Medical History: Denies: Hx Depression Traumatic Medical History: Reports: Hx Fractures - Finger - Immunizations Hx Diphtheria, Pertussis, Tetanus Vaccination: Yes - 2016 Review of Systems - Review of Systems Notes: My Normal Review Basic REVIEW OF SYSTEMS: CONSTITUTIONAL : Denies fever, chills, or sweats. Denies recent illness. EENT: Denies eye, ear, throat, or mouth pain or symptoms. Denies nasal or sinus congestion. CARDIOVASCULAR: had some chest tightness RESPIRATORY: Denies cough, cold, or chest congestion. Denies shortness of breath, difficulty breathing, or wheezing. GASTROINTESTINAL: Denies abdominal pain. Denies nausea, vomiting, or diarrhea. Denies constipation. Last BM: MUSCULOSKELETAL: Denies neck or back pain or joint pain or swelling. SKIN: Denies rash or skin lesions. NEUROLOGICAL: Denies altered mental status or loss of consciousness. Denies headache. Denies weakness or paralysis or loss of use of either side. Denies problems with gait or speech. numbness and weakness in left arm. ALL OTHER SYSTEMS REVIEWED AND NEGATIVE. Physical Exam - Vital signs Vitals: Temp Pulse Resp BP Pulse Ox 97.6 F 68 18 121/81 96 04/15/18 23:04 04/15/18 23:04 04/15/18 23:04 04/15/18 23:04 04/15/18 23:04 - Notes Notes: General Appearance: Well nourished, alert, cooperative, no acute distress, no obvious discomfort. Vitals: reviewed, See vital signs table. Head: no swelling or tenderness to the head Eyes: PERRL, EOMI, Conjuctiva clear Mouth: No decreasd moisture Neck: Supple, no neck tenderness, No thyromegaly Lungs: No wheezing, No rales, No rhonci, No accessory muscle use, good air exchange bilaterally. Heart: Normal rate, Regular rythm, No murmur, no rub Abdomen: Normal BS, soft, No rigidity, No abdominal tenderness, No guarding, no rebound, no abdominal masses, no organomegaly Extremities: strength 5/5 in all extremities, good pulses in all extremities, no swelling or tenderness in the extremities, no edema. Skin: warm, dry, appropriate color, no rash Neuro: speech clear, oriented x 3, normal affect, responds appropriately to questions. Cranial nerves II through XII are intact. Distal sensation intact. Patient moves all extremities without difficulty. No focal neurologic deficits on exam. Course - Re-evaluation Re-evalutation: 04/16/18 06:05 Talk to patient at length. My strong recommendation that he stay in the hospital. I informed him that it is unclear if this could be a TIA or possible signs of impending heart attack. He did have some chest tightness and exertional dyspnea suggests that this could relate to his heart; however, the numbness into his left arm and the fact he had weakness in his left arm for 20 minutes suggest that this could also be a TIA. He has a strong family history of both. I informed him that there is possibility that he could go on to have a stroke or even have a heart attack next 24-48 hours and therefore strongly recommend him staying in the hospital for further workup. Patient is understanding of this. 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 He says he has a big job yesterday in the morning and that there is no way that he can miss it. He is understanding of the risks of heart attack and stroke and that these can lead to permanent disability and . Him and his both was not to my concerns and her understanding of it but patient says he just cannot miss this job. Patient agrees to take daily aspirin. He said if he has any recurrence of symptoms will turn around and come back immediately. He says he will not exert himself for work hard today. He said he would follow- up closely with his doctor. I informed him that we want him to return to ER anytime for reevaluation and continued workup and treatment that we welcome to come back and want what is best for him. Patient and showed understanding of this. Dictation of this chart was performed using voice recognition software; therefore, there may be some unintended grammatical errors. - Vital Signs Vital signs: Temp Pulse Resp BP Pulse Ox 97.6 F 68 13 115/78 98 04/16/18 03:42 04/15/18 23:04 04/16/18 03:41 04/16/18 03:42 04/16/18 03:41 - Laboratory Result Diagrams: 04/16/18 00:46 04/16/18 00:09 Laboratory results interpreted by me: 04/16/18 04/16/18 04/16/18 00:09 00:09 00:46 RBC 4.32 L BUN 24 H Creatine Kinase 217 H Urine Ketones TRACE H Urine Urobilinogen 2.0 H Urine Ascorbic Acid 40 H - EKG Interpretation by Me Additional EKG results interpreted by me: 04/16/18 01:53 EKG is reviewed and interpreted by me. EKG shows normal sinus rhythm with a rate of [address] segment elevation or depression. No ischemic T-wave inversions. [place] interval, QRS duration, QTc intervals are within normal range. Old EKG for comparison is from June 20, 2017. Discharge - Discharge Clinical Impression: Left-sided weakness Dyspnea Qualifiers: Dyspnea type: unspecified Qualified Code(s): R06.00 - Dyspnea, unspecified Condition: Good Disposition: HOME, SELF-CARE Additional Instructions: As discussed with you we recommend staying in the hospital tonight because your symptoms are concerning for increased risk of stroke and also potentially increased risk of heart attack. There is no way to determine whether or not this will happen within the next 24 hours and this is why we prefer you to stay. We respect your decision to leave and understand that you do have prior priorities. Even though you are leaving we are not upset or mad. We just want what is best for you and therefore we encourage you to come back anytime if you have any recurrence of your symptoms. Please follow-up with your doctor soon as possible for reevaluation and talk to him about possible outpatient stress testing for her heart and also workup for TIA. Please take 81 mg of aspirin every day.
--- NOTE | 2018-04-16 02:46 | RADIOLOGY REPORT (SQ) ---
EXAM DESCRIPTION: CT HEAD WITHOUT IV CONTRAST COMPLETED DATE/TME: 04/16/2018 02:10 CLINICAL HISTORY: left arm weakness COMPARISON: 06/20/2017 TECHNIQUE: Axial CT of the head obtained from the skull apex to the skull base without contrast. FINDINGS: No acute intracranial hemorrhage identified. No mass, mass effect, shift of the midline, abnormal extra-axial fluid collection or CT evidence of acute ischemic change identified. The ventricular system is unremarkable. No acute abnormalities of the supratentorial white matter, basal ganglia, cerebellum, or brainstem. The visualized paranasal sinuses and the mastoids are clear. No skull fracture identified. Visualized orbits and globes are unremarkable. DLP: 978.94 mGy-cm IMPRESSION: 1. No acute intracranial abnormality identified. This exam was performed according to our departmental dose-optimization program, which includes automated exposure control, adjustment of the mA and/or kV according to patient size and/or use of iterative reconstruction technique.
[2018-04-16 03:49] VITALS: BP 115/78
--- NOTE | 2018-04-16 19:35 | EKG REPORT ---
SEVERITY:- NORMAL ECG - SINUS RHYTHM : Confirmed by: Diana Regalado MD 16-Apr-2018 19:34:49
== END 2018-04-16 03:48 | disposition home or self-care (01) ==
LOC: ER 23:03
DX: R53.1 Weakness (principal); R20.0 Anesthesia of skin; R51 Headache; R06.02 Shortness of breath; R07.89 Other chest pain; F12.10 Cannabis abuse, uncomplicated; I10 Essential (primary) hypertension; Z82.3 Family history of stroke; Z82.49 Family history of ischemic heart disease and other diseases of the circulatory system
CPT/HCPCS: 36415; 70450; 71046; 80053; 81001; 82550; 82553; 84484; 85025; 85610; 85730; 93005; 93010; 99285

== ENCOUNTER 2018-05-11 11:09 | Emergency (ER) | payer OTHER ==
--- NOTE | 2018-05-11 11:22 | ER Document Report ---
ED General - General Stated Complaint: ALTERED MENTAL STATUS Time Seen by Provider: 05/11/18 11:19 TRAVEL OUTSIDE OF THE [place] IN LAST 30 DAYS: No - Related Data Allergies/Adverse Reactions: No Known Allergies Allergy (Verified 06/20/17 16:12) Past Medical History - Social History Family History: Arthritis, DM, Hypertension, Malignancy, Other - Negative for sudden cardiac or premature CAD in the family - Past Medical History Cardiac Medical History: Reports: Hx Hypertension Neurological Medical History: Reports: Hx Seizures Renal/ Medical History: Denies: Hx Peritoneal Dialysis Musculoskeletal Medical History: Reports Hx Musculoskeletal Trauma - Finger Psychiatric Medical History: Denies: Hx Depression Traumatic Medical History: Reports: Hx Fractures - Finger - Immunizations Hx Diphtheria, Pertussis, Tetanus Vaccination: Yes - 2016
[2018-05-11 12:33] LABS: VENOUS BLOOD BASE EXCESS 0.6 mmol/L; VENOUS BLOOD HCO3 24.1 mmol/L (20-32); VENOUS BLOOD PCO2 35.6 mmHg (35-63); VENOUS BLOOD PH 7.45 (7.30-7.42)
[2018-05-11 12:51] LABS: ALANINE AMINOTRANSFERASE 18 U/L (21-72); ALBUMIN 4.7 g/dL (3.5-5.0); ALKALINE PHOSPHATASE 80 U/L (38-126); ANION GAP 14 (5-19); ASPARTATE AMINO TRANSFERASE 18 U/L (17-59); BILIRUBIN,DIRECT 0.3 mg/dL (0.0-0.4); BLOOD UREA NITROGEN 21 mg/dL (7-20); CALCIUM 10.7 mg/dL (8.4-10.2); CARBON DIOXIDE 25 mmol/L (22-30); CHLORIDE 105 mmol/L (98-107); GLUCOSE 104 mg/dL (75-110); POTASSIUM 4.4 mmol/L (3.6-5.0); SODIUM 144.1 mmol/L (137-145); TOTAL PROTEIN 7.4 g/dL (6.3-8.2)
--- NOTE | 2018-05-11 12:58 | ER Document Report ---
ED General - General Chief Complaint: Altered Mental Status Stated Complaint: ALTERED MENTAL STATUS Time Seen by Provider: 05/11/18 11:19 Notes: 57-year-old male to emergency department via EMS for altered mental status. Patient was apparently working outside in the heat. Began to feel dizzy. Cramping all over. Unresponsive. No other history available. Was seen immediately on arrival by EMS. Had carpopedal spasms present. TRAVEL OUTSIDE OF THE [place] IN LAST 30 DAYS: No - HPI Onset: Just prior to arrival - Related Data Allergies/Adverse Reactions: No Known Allergies Allergy (Verified 06/20/17 16:12) Past Medical History - General Cannot obtain history due to: Uncooperative, Altered mental status - Social History Smoking Status: Unknown if Ever Smoked Chew tobacco use (# tins/day): No Lives with: Other Family History: Arthritis, DM, Hypertension, Malignancy, Other - Negative for sudden cardiac or premature CAD in the family Patient has suicidal ideation: No Patient has homicidal ideation: No - Past Medical History Cardiac Medical History: Reports: Hx Hypertension Neurological Medical History: Reports: Hx Seizures Renal/ Medical History: Denies: Hx Peritoneal Dialysis Musculoskeletal Medical History: Reports Hx Musculoskeletal Trauma - Finger Psychiatric Medical History: Denies: Hx Depression Traumatic Medical History: Reports: Hx Fractures - Finger - Immunizations Hx Diphtheria, Pertussis, Tetanus Vaccination: Yes - 2016 Review of Systems - Review of Systems -: Yes ROS unobtainable due to patient's medical condition Physical Exam - Vital signs Vitals: Temp Resp Pulse Ox 98.7 F 24 H 98 05/11/18 11:20 05/11/18 11:20 05/11/18 11:20 Interpretation: Normal - Notes Notes: Patient with bizarre appearance. Looking often one direction. Obvious rigidity of his lower extremities was carpopedal spasms in upper extremities. - General General appearance: Appears well, Alert - HEENT Head: Normocephalic, Atraumatic Eyes: Normal Pupils: PERRL - Respiratory Respiratory status: No respiratory distress Chest status: Nontender Breath sounds: Normal Chest palpation: Normal - Cardiovascular Rhythm: Regular Heart sounds: Normal auscultation Murmur: No - Abdominal Inspection: Normal Distension: No distension Bowel sounds: Normal Tenderness: Nontender Organomegaly: No organomegaly - Back Back: Normal, Nontender - Extremities General upper extremity: Normal inspection, Nontender, Normal color, Normal ROM , Normal temperature General lower extremity: Normal inspection, Nontender, Normal color, Normal ROM , Normal temperature. No: Birgit's sign - Neurological Neuro grossly intact: Yes Cognition: Confused Kayleigh Coma Scale Verbal: Oriented Kayleigh Coma Scale Motor: Obeys Commands Motor strength normal: LUE, RUE, LLE, RLE Sensory: Normal - Psychological Associated symptoms: Normal affect, Normal mood - Skin Skin Temperature: Warm Skin Moisture: Dry Skin Color: Normal Course - Re-evaluation Re-evalutation: 05/11/18 15:29 Patient is feeling normal at this time. Patient had an elevated pH on ABG. Based on his initial presentation he was hyperventilating. Had carpal pedal spasms. On further questioning after patient is back to normal states that he has had multiple workups for the same. Was placed on Valium by neurologist for suspicion of severe panic and anxiety with hyperventilation but did not really understand what that meant. I have explained to him what hyperventilation is. At this time feel very comfortable that patient more than likely did experience and has experienced on multiple occasions hyperventilatory syndrome. He is out of the Valium. At this time I am going to prescribe him clonazepam instead. I have advised him that he will need a follow-up appointment with her regular doctor for refills. Advised to not do illicit drugs as this could be lowering his threshold for panic as well. Patient feels comfortable with this plan. At this time will discharge in stable condition Laboratory 05/11/18 05/11/18 05/11/18 10:55 10:55 10:55 WBC Cancelled RBC Cancelled Hgb Cancelled Hct Cancelled MCV Cancelled MCH Cancelled MCHC Cancelled RDW Cancelled Plt Count Cancelled Seg Neutrophils % Cancelled Lymphocytes % Cancelled Monocytes % Cancelled Eosinophils % Cancelled Basophils % Cancelled Absolute Neutrophils Cancelled Absolute Lymphocytes Cancelled Absolute Monocytes Cancelled Absolute Eosinophils Cancelled Absolute Basophils Cancelled Platelet Estimate Cancelled VBG pH VBG pCO2 VBG HCO3 VBG Base Excess Sodium Cancelled Potassium Cancelled Chloride Cancelled Carbon Dioxide Cancelled Anion Gap Cancelled BUN Cancelled Creatinine Cancelled Est GFR ( Amer) Cancelled Est GFR (Non-Af Amer) Cancelled Glucose Cancelled Calcium Cancelled Magnesium Cancelled Total Bilirubin Cancelled Direct Bilirubin Cancelled Neonat Total Bilirubin Cancelled Neonat Direct Bilirubin Cancelled Neonat Indirect Bili Cancelled AST Cancelled ALT Cancelled Alkaline Phosphatase Cancelled Troponin I Cancelled Total Protein Cancelled Albumin Cancelled Urine Color Urine Appearance Urine pH Ur Specific [place] Urine Protein Urine Glucose (UA) Urine Ketones Urine Blood Urine Nitrite Urine Bilirubin Urine Urobilinogen Ur Leukocyte Esterase Urine WBC (Auto) Urine RBC (Auto) U Hyaline Cast (Auto) Squamous Epi Cells Auto Urine Mucus (Auto) Urine Ascorbic Acid Urine Opiates Screen Urine Methadone Screen Ur Barbiturates Screen Ur Phencyclidine Scrn Ur Amphetamines Screen U Benzodiazepines Scrn Urine Cocaine Screen U Marijuana (THC) Screen Slides for Path Review Cancelled 05/11/18 05/11/18 05/11/18 12:02 12:02 12:02 WBC 10.7 H RBC 4.95 Hgb 16.0 Hct 46.3 MCV 94 MCH 32.3 MCHC 34.6 RDW 13.3 Plt Count 249 Seg Neutrophils % 83.1 H Lymphocytes % 10.1 L Monocytes % 6.0 Eosinophils % 0.5 Basophils % 0.3 Absolute Neutrophils 8.9 H Absolute Lymphocytes 1.1 Absolute Monocytes 0.6 Absolute Eosinophils 0.1 Absolute Basophils 0.0 Platelet Estimate VBG pH 7.45 H VBG pCO2 35.6 VBG HCO3 24.1 VBG Base Excess 0.6 Sodium 144.1 Potassium 4.4 Chloride 105 Carbon Dioxide 25 Anion Gap 14 BUN 21 H Creatinine 1.30 H Est GFR ( Amer) > 60 Est GFR (Non-Af Amer) 57 L Glucose 104 Calcium 10.7 H Magnesium 1.8 Total Bilirubin 1.0 Direct Bilirubin 0.3 Neonat Total Bilirubin Not Reportable Neonat Direct Bilirubin Not Reportable Neonat Indirect Bili Not Reportable AST 18 ALT 18 L Alkaline Phosphatase 80 Troponin I Total Protein 7.4 Albumin 4.7 Urine Color Urine Appearance Urine pH Ur Specific [place] Urine Protein Urine Glucose (UA) Urine Ketones Urine Blood Urine Nitrite Urine Bilirubin Urine Urobilinogen Ur Leukocyte Esterase Urine WBC (Auto) Urine RBC (Auto) U Hyaline Cast (Auto) Squamous Epi Cells Auto Urine Mucus (Auto) Urine Ascorbic Acid Urine Opiates Screen Urine Methadone Screen Ur Barbiturates Screen Ur Phencyclidine Scrn Ur Amphetamines Screen U Benzodiazepines Scrn Urine Cocaine Screen U Marijuana (THC) Screen Slides for Path Review 05/11/18 05/11/18 05/11/18 12:02 13:15 13:15 WBC RBC Hgb Hct MCV MCH MCHC RDW Plt Count Seg Neutrophils % Lymphocytes % Monocytes % Eosinophils % Basophils % Absolute Neutrophils Absolute Lymphocytes Absolute Monocytes Absolute Eosinophils Absolute Basophils Platelet Estimate VBG pH VBG pCO2 VBG HCO3 VBG Base Excess Sodium Potassium Chloride Carbon Dioxide Anion Gap BUN Creatinine Est GFR ( Amer) Est GFR (Non-Af Amer) Glucose Calcium Magnesium Total Bilirubin Direct Bilirubin Neonat Total Bilirubin Neonat Direct Bilirubin Neonat Indirect Bili AST ALT Alkaline Phosphatase Troponin I < 0.012 Total Protein Albumin Urine Color YELLOW Urine Appearance SLIGHTLY-CLOUDY Urine pH 5.0 Ur Specific [place] 1.026 Urine Protein NEGATIVE Urine Glucose (UA) NEGATIVE Urine Ketones 20 H Urine Blood NEGATIVE Urine Nitrite NEGATIVE Urine Bilirubin NEGATIVE Urine Urobilinogen 2.0 H Ur Leukocyte Esterase NEGATIVE Urine WBC (Auto) 9 Urine RBC (Auto) 1 U Hyaline Cast (Auto) 82 Squamous Epi Cells Auto 1 Urine Mucus (Auto) MANY Urine Ascorbic Acid NEGATIVE Urine Opiates Screen NEGATIVE Urine Methadone Screen NEGATIVE Ur Barbiturates Screen NEGATIVE Ur Phencyclidine Scrn NEGATIVE Ur Amphetamines Screen NEGATIVE U Benzodiazepines Scrn UNCONFIRMED POSITIVE Urine Cocaine Screen NEGATIVE U Marijuana (THC) Screen UNCONFIRMED POSITIVE Slides for Path Review Head CT 05/11/18 11:28 IMPRESSION: NORMAL BRAIN CT WITHOUT CONTRAST. EVIDENCE OF ACUTE STROKE: NO. - Vital Signs Vital signs: Temp Pulse Resp BP Pulse Ox 98.7 F 69 15 139/101 H 95 05/11/18 11:20 05/11/18 12:00 05/11/18 12:00 05/11/18 12:00 05/11/18 12:00 - Laboratory Result Diagrams: 05/11/18 12:02 05/11/18 12:02 Laboratory results interpreted by me: 05/11/18 05/11/18 05/11/18 12:02 12:02 12:02 WBC 10.7 H Seg Neutrophils % 83.1 H Lymphocytes % 10.1 L Absolute Neutrophils 8.9 H VBG pH 7.45 H BUN 21 H Creatinine 1.30 H Est GFR (Non-Af Amer) 57 L Calcium 10.7 H ALT 18 L Urine Ketones Urine Urobilinogen 05/11/18 13:15 WBC Seg Neutrophils % Lymphocytes % Absolute Neutrophils VBG pH BUN Creatinine Est GFR (Non-Af Amer) Calcium ALT Urine Ketones 20 H Urine Urobilinogen 2.0 H Discharge - Discharge Clinical Impression: Respiratory alkalosis, Chronic hyperventilation syndrome Condition: Good Disposition: HOME, SELF-CARE Additional Instructions: Hyperventilation You have had an episode of hyperventilation. The symptoms occur because rapid breathing changes the body's chemical balance. Hyperventilation causes dizziness, numbness (particularly of the hands and face), chest pain, muscle spasms, and anxiety. Once an episode begins, it's extremely difficult to control the "need" to breathe rapidly. Hyperventilation may be provoked by drug effects, nausea, or illness, but is often due to anxiety. If no specific cause for the problem was found, treatment for anxiety may be necessary. Once the chemical changes have occurred, the hyperventilation is likely to recur. If you feel the symptoms again, rebreathe your air with a paper bag for several minutes. Sometimes hyperventilation is a symptom of an underlying metabolic or lung problem. If new symptoms develop (such as productive cough, fever, or chest pain), or if you are unable to get relief with rebreathing your exhaled air, call the physician. Prescriptions: Clonazepam 1 mg PO QHS 30 Days #30 tablet Forms: Return to Work Referrals: [facility] [Provider Group] - Follow up as needed [facility] [Provider Group] - Follow up as needed
--- NOTE | 2018-05-11 12:58 | RADIOLOGY REPORT (SQ) ---
EXAM DESCRIPTION: CT HEAD WITHOUT COMPLETED DATE/TIME: 05/11/2018 12:48 pm REASON FOR STUDY: altered mental status COMPARISON: None. TECHNIQUE: Axial images acquired through the brain without intravenous contrast. Images reviewed wi th bone, brain and subdural windows. Additional sagittal and coronal reconstructions were generated. Images stored on PACS. All CT scanners at this facility use dose modulation, iterative reconstruction, and/or weight based d osing when appropriate to reduce radiation dose to as low as reasonably achievable (ALARA). [facility]: Dose Right [facility]: CareDose [facility]: Dose Right [facility]: Teradose 4D [facility]: Smart [email or web address] RADIATION DOSE: CT Rad equipment meets quality standard of care and radiation dose reduction techniq ues were employed. CTDIvol: 53.2 mGy. DLP: 1044 mGy-cm. mGy. LIMITATIONS: None. FINDINGS: VENTRICLES: Normal size and contour. CEREBRUM: No masses. No hemorrhage. No midline shift. No evidence for acute infarction. Normal gra y/white matter differentiation. No areas of low density in the white matter. CEREBELLUM: No masses. No hemorrhage. No alteration of density. No evidence for acute infarction. EXTRAAXIAL SPACES: No fluid collections. No masses. ORBITS AND GLOBE: No intra- or extraconal masses. Normal contour of globe without masses. CALVARIUM: No fracture. PARANASAL SINUSES: No fluid or mucosal thickening. SOFT TISSUES: No mass or hematoma. OTHER: No other significant finding. IMPRESSION: NORMAL BRAIN CT WITHOUT CONTRAST. EVIDENCE OF ACUTE STROKE: NO. COMMENT: Quality ID # [id number]: Final reports with documentation of one or more dose reduction techniques (e.g., Automated exposure control, adjustment of the mA and/or kV according to patient size, use of iterative reconstruction technique) TECHNICAL DOCUMENTATION: JOB ID: [id number] [employer]- All Rights Reserved Reading location - IP/workstation name: [email or web address]
[2018-05-11 13:18] LABS: ABSOLUTE EOSINOPHILS # (AUTO) 0.1 10^3/uL (0.0-0.6); ABSOLUTE LYMPHOCYTES (AUTO) 1.1 10^3/uL (0.5-4.7); ABSOLUTE MONOCYTES (AUTO) 0.6 10^3/uL (0.1-1.4); ABSOLUTE NEUT (AUTO) 8.9 10^3/uL (1.7-8.2); BASOPHILS % (AUTO) 0.3 % (0-2); EOSINOPHILS % (AUTO) 0.5 % (0-6); HEMATOCRIT 46.3 % (37.9-51.0); LYMPHOCYTES % (AUTO) 10.1 % (13-45); MEAN CORPUSCULAR HEMOGLOBIN 32.3 pg (27.0-33.4); MEAN CORPUSCULAR HGB CONC 34.6 g/dL (32.0-36.0); MEAN CORPUSCULAR VOLUME 94 fl (80-97); PLATELET COUNT 249 10^3/uL (150-450); RED BLOOD COUNT 4.95 10^6/uL (4.35-5.55); RED CELL DISTRIBUTION WIDTH 13.3 % (11.5-14.0); SEGMENTED NEUTROPHILS % (AUTO) 83.1 % (42-78); TOTAL CELLS COUNTED % (AUTO) 100 %; WHITE BLOOD COUNT 10.7 10^3/uL (4.0-10.5)
[2018-05-11 14:06] LABS: APPEARANCE,URINE SLIGHTLY-CLOUDY; BILIRUBIN,URINE NEGATIVE (NEGATIVE); GLUCOSE, URINE NEGATIVE (NEGATIVE); KETONES,URINE 20 mg/dL (NEGATIVE); LEUKOCYTE ESTERASE,URINE NEGATIVE (NEGATIVE); NITRITE,URINE NEGATIVE (NEGATIVE); PROTEIN,URINE NEGATIVE (NEGATIVE); URINE SPECIFIC GRAVITY 1.026
[2018-05-11 14:07] LABS: COLOR,URINE YELLOW
[2018-05-11] MEDS ORDERED: NORMAL SALINE 1000 ML 1,000 ML IV ONE (14:10)
[2018-05-11 14:15] LABS: URINE AMPHETAMINES SCREEN NEGATIVE; URINE BARBITURATES SCREEN NEGATIVE; URINE BENZODIAZEPINES SCREEN UNCONFIRMED POSITIVE; URINE COCAINE SCREEN NEGATIVE; URINE MARIJUANA (THC) SCREEN UNCONFIRMED POSITIVE; URINE METHADONE SCREEN NEGATIVE; URINE PHENCYCLIDINE SCREEN NEGATIVE
[2018-05-11 16:19] VITALS: BP 131/98
--- NOTE | 2018-05-11 22:30 | EKG REPORT ---
SEVERITY:- ABNORMAL ECG - SINUS RHYTHM LAD, CONSIDER LEFT ANTERIOR FASCICULAR BLOCK : Confirmed by: Diana Regalado MD 11-May-2018 22:30:26
--- NOTE | 2018-05-12 11:28 | EKG REPORT ---
SEVERITY:- NORMAL ECG - SINUS RHYTHM : Confirmed by: Diana Regalado MD 12-May-2018 11:27:31
== END 2018-05-11 16:26 | disposition home or self-care (01) ==
LOC: ER 11:09
DX: E87.3 Alkalosis (principal); F45.8 Other somatoform disorders; R41.82 Altered mental status, unspecified; R42 Dizziness and giddiness; M62.838 Other muscle spasm; I10 Essential (primary) hypertension
CPT/HCPCS: 93005; 99285; 36415; 83735; 85025; 80053; 81001; 84484; 80307; 82803; 70450; 93010; J7030

== ENCOUNTER 2018-06-24 13:14 | Emergency (ER) | payer MEDICAID ==
[2018-06-24] MEDS ORDERED: NORMAL SALINE 1000 ML 1,000 ML IV ONE (13:38)
[2018-06-24] MEDS ORDERED: ONDANSETRON HCL INJ/PF 4 MG/2 ML SDV IV ONE (13:38)
[2018-06-24] MEDS ORDERED: NORMAL SALINE 1000 ML 1,000 ML IV PRN (13:38)
[2018-06-24] MEDS ORDERED: FENTANYL CITRATE INJ/PF 100 MCG/2 ML AMPUL IV ONE (13:38)
[2018-06-24] MEDS ORDERED: DIPH/PERTUSS(ACELL)/TETANUS VAC/PF 0.5 ML SYR (>=10YO) IM ONE (13:39)
--- NOTE | 2018-06-24 13:41 | ER Document Report ---
ED Medical Screen (RME) - General Chief Complaint: Laceration Stated Complaint: LACERATION TO RIGHT RING FINGER Time Seen by Provider: 06/24/18 13:38 Notes: 58 years old male presents today with left fourth finger almost complete amputation just prior to arrival. And asked in extreme pain. TRAVEL OUTSIDE OF THE [place] IN LAST 30 DAYS: No - Related Data Allergies/Adverse Reactions: No Known Allergies Allergy (Verified 06/24/18 13:20) Past Medical History - Past Medical History Cardiac Medical History: Reports: Hx Hypertension Neurological Medical History: Reports: Hx Seizures Renal/ Medical History: Denies: Hx Peritoneal Dialysis Musculoskeltal Medical History: Reports Hx Musculoskeletal Trauma - Finger Psychiatric Medical History: Denies: Hx Depression Traumatic Medical History: Reports: Hx Fractures - Finger - Immunizations Hx Diphtheria, Pertussis, Tetanus Vaccination: Yes - 2015 History of Influenza Vaccine for 07/2017 - 12/2017 Season: Unknown Physical Exam - Vital signs Vitals: Temp Pulse Resp BP Pulse Ox 98.0 F 69 17 141/83 H 98 06/24/18 13:24 06/24/18 13:24 06/24/18 13:24 06/24/18 13:24 06/24/18 13:24 Course - Vital Signs Vital signs: Temp Pulse Resp BP Pulse Ox 98.0 F 69 17 141/83 H 98 06/24/18 13:24 06/24/18 13:24 06/24/18 13:24 06/24/18 13:24 06/24/18 13:24
[2018-06-24] MEDS ORDERED: LIDOCAINE 1% INJ-PF (10 MG/ML) 30 ML SDV INJ ONE (14:20)
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
[2018-06-24 14:58] LABS: ANION GAP 10 (5-19); BLOOD UREA NITROGEN 19 mg/dL (7-20); CALCIUM 9.5 mg/dL (8.4-10.2); CARBON DIOXIDE 22 mmol/L (22-30); CHLORIDE 110 mmol/L (98-107); GLUCOSE 115 mg/dL (75-110); POTASSIUM 4.6 mmol/L (3.6-5.0); SODIUM 141.8 mmol/L (137-145)
--- NOTE | 2018-06-24 15:07 | RADIOLOGY REPORT (SQ) ---
EXAM DESCRIPTION: HAND RIGHT 3 VIEWS COMPLETED DATE/TIME: 06/24/2018 2:47 pm REASON FOR STUDY: crush injury COMPARISON: 09/29/2014 EXAM PARAMETERS: NUMBER OF VIEWS: Three views. TECHNIQUE: AP, lateral and oblique radiographic images acquired of the right hand. LIMITATIONS: None. FINDINGS: MINERALIZATION: Normal. BONES: No acute fracture or dislocation. No worrisome bone lesions. JOINTS: No effusions. SOFT TISSUES: No soft tissue swelling. No foreign body. OTHER: No other significant finding. IMPRESSION: NEGATIVE STUDY OF THE RIGHT HAND. NO RADIOGRAPHIC EVIDENCE OF ACUTE INJURY. TECHNICAL DOCUMENTATION: JOB ID: [id number] [employer] [facility] [employer]- All Rights Reserved Reading location - IP/workstation name: [email or web address]
[2018-06-24] MEDS ORDERED: HYDROMORPHONE HCL INJ/PF 2 MG/ML AMPULE IV ONE ×2 (15:20→16:53)
[2018-06-24 17:16] VITALS: BP 131/81
--- NOTE | 2018-06-24 20:02 | EKG REPORT ---
SEVERITY:- ABNORMAL ECG - SINUS RHYTHM NONSPECIFIC INTRAVENTRICULAR CONDUCTION DELAY : Confirmed by: Diana Regalado MD 24-Jun-2018 20:01:44
== END 2018-06-24 17:16 | disposition home or self-care (01) ==
LOC: ER 13:14
PROC: 0HQFXZZ Repair Right Hand Skin, External Approach (ICD-10-PCS; principal; 2018-06-24)
DX: S61.314A Laceration without foreign body of right ring finger with damage to nail, initial encounter (principal); R55 Syncope and collapse; W23.0XXA Caught, crushed, jammed, or pinched between moving objects, initial encounter; X37.0XXA Hurricane, initial encounter; I10 Essential (primary) hypertension
CPT/HCPCS: 93005; 99284; 96361; 90471; 96374; 96375; 36415; 80048; 73130; 90715; 93010; 12002; J3010; J3490; J1170; J2405

== ENCOUNTER 2018-07-03 18:27 | Emergency (ER) | payer MEDICAID ==
[2018-07-03] MEDS ORDERED: RINGERS SOLUTION,LACTATED 1,000 ML IV ONE (18:36)
[2018-07-03] MEDS ORDERED: ONDANSETRON HCL INJ/PF 4 MG/2 ML SDV IV ONE (18:37)
[2018-07-03] MEDS ORDERED: MIDAZOLAM 2 MG/2 ML INJ IV ONE (18:40)
--- NOTE | 2018-07-03 18:43 | ER Document Report ---
ED General - General Stated Complaint: HEAT EXHAUSTION Time Seen by Provider: 07/03/18 18:36 Cannot obtain history due to: Uncooperative, Altered mental status Notes: Patient is a 58-year-old male with a history of polysubstance abuse, hyperventilatory syncope who presents by EMS with concerns of possibly having syncopized or had a seizure episode prior to arrival. The patient is uncooperative, feigning altered mental status initially. He refuses to provide history. Review of medical records shows that he has had multiple similar presentations in the past. TRAVEL OUTSIDE OF THE [place] IN LAST 30 DAYS: No - Related Data Allergies/Adverse Reactions: No Known Allergies Allergy (Verified 06/24/18 13:20) Past Medical History - General Information source: Patient, Emergency Med Personnel - Social History Smoking Status: Current Every Day Smoker Frequency of alcohol use: Heavy Drug Abuse: Cocaine, Marijuana Family History: Arthritis, DM, Hypertension, Malignancy, Other - Negative for sudden cardiac or premature CAD in the family - Past Medical History Cardiac Medical History: Reports: Hx Hypertension Neurological Medical History: Reports: Hx Seizures Renal/ Medical History: Denies: Hx Peritoneal Dialysis Musculoskeletal Medical History: Reports Hx Musculoskeletal Trauma - Finger Psychiatric Medical History: Denies: Hx Depression Traumatic Medical History: Reports: Hx Fractures - Finger - Immunizations Hx Diphtheria, Pertussis, Tetanus Vaccination: Yes - 2016 Review of Systems - Review of Systems -: Yes ROS unobtainable due to patient's medical condition Physical Exam - Vital signs Vitals: Temp 98.0 F 07/03/18 18:32 Interpretation: Normal Notes: PHYSICAL EXAMINATION: GENERAL: Well-appearing, well-nourished and in no acute distress. HEAD: Atraumatic, normocephalic. EYES: Pupils equal round and reactive to light, extraocular movements intact, sclera anicteric, conjunctiva are normal. ENT: nares patent, oropharynx clear without exudates. Moist mucous membranes. NECK: Normal range of motion, supple without lymphadenopathy LUNGS: Breath sounds clear to auscultation bilaterally and equal. No wheezes rales or rhonchi. HEART: Regular rate and rhythm without murmurs ABDOMEN: Soft, nontender, normoactive bowel sounds. No guarding, no rebound. No masses appreciated. EXTREMITIES: Normal range of motion, no pitting or edema. No cyanosis. NEUROLOGICAL: No focal neurological deficits. Moves all extremities spontaneously and on command. PSYCH: Alert, oriented only person but does provide specific details regarding his recent medical history and easily identifies family members. SKIN: Warm, Dry, normal turgor, no rashes or lesions noted. Course - Re-evaluation Re-evalutation: 07/03/18 18:41 Patient presents with altered mental status after apparently having an episode in which he almost passed out or did pass out just prior to arrival. The patient has been seen and evaluated for the same thing on multiple occasions including hospitalization in 2017 as well as a presentation to the emergency department approximately 6 weeks ago. He has been diagnosed with panic disorder with associated hyperventilation and is apparently supposed to be taking benzodiazepines for this condition. The patient also has underlying history of polysubstance abuse and consistently screens positive for cocaine on previous assessments. At the time of my evaluation the patient is not oriented to year, month, location. He does not currently have capacity. He is expressing suicidal ideation although his altered mental status does make it difficult to ascertain the validity of this claim. Will obtain labs, proceed with IV fluids, small dose of midazolam and reassess. No indication for neuroimaging as the patient has repeatedly had imaging of his brain in this context including MRI and CT which are normal. There is no evidence of head trauma that would indicate a traumatic need for CT of the head. 07/03/18 19:40 Patient is now apparently somewhat agitated, now repeatedly naming that he is going to kill himself, kill other people, that his hearing commanding voices. At this point will place patient under involuntary commitment given his stated plans to harm himself and others. I do not believe he actually has altered mental status as his disorientation is not consistent. He is able to give very specific details regarding a recent injury to his right hand, immediate recognizes his fiance, but then seems to faint and that he does not know what year it is. None of this is consistent with true delirium or dementia or any true altered mental status. The patient will be given haloperidol given his agitation. An IVC will be completed. Screening labs are pending. 07/04/18 02:18 Medical screening labs and exam are unremarkable. Patient is cleared for disposition by [facility]. - Vital Signs Vital signs: Temp Pulse Resp BP Pulse Ox 98.0 F 13 139/111 H 97 07/03/18 18:32 07/03/18 20:01 07/03/18 20:00 07/03/18 20:01 - Laboratory Result Diagrams: 07/03/18 18:53 07/03/18 18:53 Laboratory results interpreted by me: 07/03/18 07/03/18 18:53 18:53 WBC 11.5 H Seg Neutrophils % 86.1 H Lymphocytes % 8.0 L Absolute Neutrophils 9.9 H Glucose 68 L Creatine Kinase 216 H - EKG Interpretation by Me Additional EKG results interpreted by me: 07/03/18 19:43 Sinus rhythm. Rate 60. No ST elevations or depressions. QTC 396. Discharge - Discharge Clinical Impression: Suicidal ideation, Polysubstance abuse, Near syncope
[2018-07-03 19:03] LABS: ABSOLUTE LYMPHOCYTES (AUTO) 0.9 10^3/uL (0.5-4.7); ABSOLUTE MONOCYTES (AUTO) 0.6 10^3/uL (0.1-1.4); ABSOLUTE NEUT (AUTO) 9.9 10^3/uL (1.7-8.2); BASOPHILS % (AUTO) 0.2 % (0-2); EOSINOPHILS % (AUTO) 0.4 % (0-6); HEMATOCRIT 40.6 % (37.9-51.0); HEMOGLOBIN 13.9 g/dL (13.5-17.0); MEAN CORPUSCULAR HEMOGLOBIN 31.9 pg (27.0-33.4); MEAN CORPUSCULAR HGB CONC 34.3 g/dL (32.0-36.0); MEAN CORPUSCULAR VOLUME 93 fl (80-97); MONOCYTES % (AUTO) 5.3 % (3-13); PLATELET COUNT 210 10^3/uL (150-450); RED BLOOD COUNT 4.35 10^6/uL (4.35-5.55); RED CELL DISTRIBUTION WIDTH 12.8 % (11.5-14.0); SEGMENTED NEUTROPHILS % (AUTO) 86.1 % (42-78); TOTAL CELLS COUNTED % (AUTO) 100 %; WHITE BLOOD COUNT 11.5 10^3/uL (4.0-10.5)
[2018-07-03 19:20] LABS: ALANINE AMINOTRANSFERASE 22 U/L (21-72); ALBUMIN 4.2 g/dL (3.5-5.0); ALKALINE PHOSPHATASE 72 U/L (38-126); ANION GAP 10 (5-19); ASPARTATE AMINO TRANSFERASE 18 U/L (17-59); BILIRUBIN,DIRECT 0.3 mg/dL (0.0-0.4); BILIRUBIN,TOTAL 0.8 mg/dL (0.2-1.3); BLOOD UREA NITROGEN 17 mg/dL (7-20); CALCIUM 10.1 mg/dL (8.4-10.2); CARBON DIOXIDE 26 mmol/L (22-30); CHLORIDE 106 mmol/L (98-107); CREATINE KINASE 216 U/L (55-170); GLUCOSE 68 mg/dL (75-110); POTASSIUM 3.8 mmol/L (3.6-5.0); SODIUM 142.3 mmol/L (137-145); TOTAL PROTEIN 6.8 g/dL (6.3-8.2)
[2018-07-03 19:23] LABS: ALCOHOL < 10 mg/dL (NONE DETECTED)
[2018-07-03 19:32] LABS: CREATINE KINASE MB 0.77 ng/mL (<4.55)
[2018-07-03 19:33] LABS: TROPONIN I < 0.012 ng/mL
[2018-07-03] MEDS ORDERED: HALOPERIDOL LACTATE INJ 5 MG/1 ML VIAL IV ONE (19:38)
--- NOTE | 2018-07-03 20:20 | EKG REPORT ---
SEVERITY:- ABNORMAL ECG - SINUS RHYTHM LAD, CONSIDER LEFT ANTERIOR FASCICULAR BLOCK : Confirmed by: Diana Regalado MD 03-Jul-2018 20:20:24
[2018-07-03 20:36] LABS: APPEARANCE,URINE SLIGHTLY-CLOUDY; BILIRUBIN,URINE NEGATIVE (NEGATIVE); COLOR,URINE YELLOW; GLUCOSE, URINE NEGATIVE (NEGATIVE); KETONES,URINE NEGATIVE (NEGATIVE); LEUKOCYTE ESTERASE,URINE NEGATIVE (NEGATIVE); NITRITE,URINE NEGATIVE (NEGATIVE); PROTEIN,URINE NEGATIVE (NEGATIVE); UROBILINOGEN,URINE NEGATIVE mg/dL (<2.0)
[2018-07-03] MEDS ORDERED: ACETAMINOPHEN 325 MG TABLET PO ONE (21:08)
[2018-07-03 21:09] LABS: URINE AMPHETAMINES SCREEN NEGATIVE; URINE BARBITURATES SCREEN NEGATIVE; URINE BENZODIAZEPINES SCREEN UNCONFIRMED POSITIVE; URINE COCAINE SCREEN NEGATIVE; URINE MARIJUANA (THC) SCREEN UNCONFIRMED POSITIVE; URINE METHADONE SCREEN NEGATIVE; URINE PHENCYCLIDINE SCREEN NEGATIVE
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
[2018-07-04 12:04] VITALS: BP 136/86
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
== END 2018-07-04 12:06 | disposition home or self-care (01) ==
LOC: ER 18:27
DX: R55 Syncope and collapse (principal); F14.10 Cocaine abuse, uncomplicated; F12.10 Cannabis abuse, uncomplicated; R45.851 Suicidal ideations; R45.850 Homicidal ideations; R44.0 Auditory hallucinations; F17.200 Nicotine dependence, unspecified, uncomplicated; I10 Essential (primary) hypertension; F41.0 Panic disorder [episodic paroxysmal anxiety]
CPT/HCPCS: 93005; 99284; 96361; 96374; 96375; 36415; 82553; 80307 ×2; 82550; 85025; 80053; 81001; 84484; 93010; J2250; J1630; J2405